=== PATIENT | female | born 1960 | race Caucasian/White ===

== ENCOUNTER 2019-04-18 10:55 | Inpatient (IN) | payer OTHER, SELFPAY ==
[2019-04-18] VITALS (27 sets, daily range): BP systolic 106–190; BP diastolic 57–98; PULSE 55–94; RESP 12–27; TEMP 36.9; O2SAT 91–100; BMI 26.9; BMI 25.7
--- NOTE | 2019-04-18 11:02 | XR_ITS ---
WS: [id number] PORTABLE CHEST HISTORY: cough/congestion COMPARISON: None available. Mild pulmonary hyperexpansion. No nodule or mass. No pleural effusion or pneumothorax. Cardiac size: Normal. Mediastinum/Aorta: Mild atherosclerosis aorta. No osseous abnormality seen. XR/XR chest 1V portable [id number] IMPRESSION: No acute cardiopulmonary disease.
--- NOTE | 2019-04-18 11:02 | ECG_ITS ---
Measurements Intervals [place] Rate: 87 P: 43 AL: 131 QRS: 77 QRSD: 91 T: 70 QT: 361 QTc: 435 SINUS RHYTHM No previous ECG available for comparison Electronically Signed On 04-18-2019 22:02:46 [employer] DIRECTOR by Andreia Song M.D. [email or web address]
--- NOTE | 2019-04-18 11:11 | ED_ITS ---
Entered by Bruna Edwards, acting as scribe for Basil Torres MD, [facility] Apr 18, 2019 10:55 HPI - Chest Pain General: Chief Complaint: Chest Pain Stated Complaint: cp Time Seen by Provider: 04/18/19 11:11 Source: patient Mode of arrival: ambulatory Limitations: no limitations History of Present Illness: HPI narrative: 59 yo Female presents to ED with chest pain. Pt states that her pains started last night. 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 Pt states that her left arm is numb. Pt states that her brother of a heart attack at age 51 and her father has a cardiac history. Pt states that she has some renal failure. Pt states that she is in a manic state because of Prednisone she is taking for her renal injury. Pt states that she hasn't been able to sleep well in some time. The patient has IgA nephropathy with vasculitis and has been on high-dose steroids, 60 mg for the last 20 days also. She is scheduled to have 40 days of the medication. The patient has not slept in several days, has been hallucinating and talking to her brother who has been for about 7 years. She is also delusional and also feels she is manic. She has a history of bipolar disorder and believes she is manic because she is not sleeping, she is full of energy, she is writing several songs, prescription, thinks she is going to win an David award and thinks God is talking to her MD complaint: chest pain Onset (ago): day(s) (last night) Timing of current episode: episodic and still present Prior episodes: No Onset: during rest and awoke with symptoms Pain location: left chest Pain radiation: left arm Pain scale (0-10): 9 Relieving factors: nothing Exacerbating factors: nothing Associated symptoms: Reports dyspnea and other (dizziness); Deny abdominal pain, fever(s), nausea, palpitations or vomiting Treatment prior to arrival: none Review of Systems General: Reports: 10 or more systems reviewed and unremarkable except in HPI and below Const: Denies: fever or chills Eyes: Denies: change in vision, blurry vision or blind spots ENMT: Denies: throat pain, enlarged tonsils, painful swallowing or hoarseness Card: Reports: chest pain and swelling of feet/ankles; Denies: palpitations or irregular heart rhythm Resp: Reports: shortness of breath; Denies: productive cough or non-productive cough GI: Denies: abdominal pain, nausea or vomiting : Denies: flank pain, difficulty urinating, painful urination or urinary frequency Musc: Denies: neck pain, back pain, extremity pain or extremity swelling Skin/Breast: Denies: rash, itching or redness Neuro: Denies: headache, numbness in extremities or weakness in extremities Psych: Reports: anxiety, sleeping less, difficulty concentrating, visual hallucinations and auditory hallucinations; Denies: suicidal ideation Endo: Denies: excessive urination, excessive thirst or tired all the time PFSH ED PFSH: Statuses (acute, chronic, etc) shown below reflect problem list status as previously entered and may not be historically accurate Social History Smoking and tobacco status: never smoked Physical Exam Const: COMMON NORMALS: no apparent distress, average body habitus, oriented x3, no limitations, healthy appearing, alert and well nourished HENMT: COMMON NORMALS: normocephalic, head/scalp atraumatic, hearing grossly normal bilaterally, external ears normal, EAC's normal, TM's normal bilaterally, external nose normal, nasal mucous membranes and turbinates normal, moist oral mucous membranes, oropharynx normal, dentition normal and gingiva normal HEAD & SCALP: normocephalic and atraumatic NOSE: external nose normal and nasal mucous membranes and turbinates normal EXTERNAL EAR: Yes external ears normal EXTERNAL AUDITORY CANAL: EAC's normal TYMPANIC MEMBRANE: TM's normal bilaterally Eye: COMMON NORMALS: PERRL, EOMs intact bilaterally, conjunctivae normal, no scleral icterus, no papilledema, normal visual jameson by confrontation and fundi normal bilaterally CONJUNCTIVA: Yes conjunctivae normal PUPIL: Yes PERRL DIRECT OPHTHALMOSCOPY: Yes no papilledema and Yes fundi normal bilaterally Neck/C-Spine: COMMON NORMALS: full ROM, supple, no meningeal signs, no JVD and no carotid bruits Chest: COMMONS NORMALS: inspection of chest normal and palpation of chest normal Resp: COMMON NORMALS: normal respiratory effort, no retractions, no use of accessory muscles, clear to auscultation bilaterally and percussion normal AUSCULTATION: clear to auscultation bilaterally PERCUSSION: percussion normal Cardio: COMMON NORMALS: no JVD, regular rate, regular rhythm, S1 normal heart sound, S2 normal heart sound, no gallops, no clicks, no murmurs, no rub and peripheral pulses 2+ throughout RATE: regular rate RHYTHM: regular rhythm HEART SOUNDS: S1 normal and S2 normal PERIPHERAL PULSES: pulses 2+ throughout GI: COMMON NORMALS: normal to inspection, nondistended, normoactive bowel sounds, soft to palpation, non-tender, no hepatosplenomegaly, no masses and no bruits PALPATION: Yes soft and Yes no hepatosplenomegaly : COMMON NORMALS: Yes no CVA tenderness BLADDER/KIDNEY EXAM: Yes no CVA tenderness Back/Pelvis: COMMON NORMALS: no CVA tenderness Extremity: COMMON NORMALS: normal to inspection, full ROM, normal capillary refill, no joint enlargement, no clubbing, cyanosis or edema, no calf tenderness and no pedal edema Neuro: COMMON NORMALS: oriented x3 SENSORIUM/ORIENTATION: Yes alert MENINGEAL SIGNS: Yes no meningeal signs Psych: APPEARANCE: Yes grossly normal ATTITUDE: Yes agitated ACTIVITY/MOTOR BEHAVIOR: Yes psychomotor agitation and Yes hyperactive SPEECH: Yes excessive and Yes rapid MOOD & AFFECT: Yes anxious THOUGHT PROCESS: disorganized Skin: COMMON NORMALS: no rashes or lesions noted, no wounds, skin turgor normal, no jaundice, no petechiae and no mottling GENERAL SKIN EXAM: no rashes or lesions noted and turgor normal Course ED course: Discussed her lab findings with her spouse. No acute findings. Patient is sleeping. Discussed options for management including admission versus outpatient care. 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 Her desires to take her home and he said he will watch her. We will let her sleep as she is currently sleeping and has not slept in several days and when she wakes up she will be discharged home. He voiced understanding and is in agreement with the plan Consultations: Consultation #1: Dr. Hdez, her activities manager. Patient should be admitted and steroids tapered. Time: 14:20 Vital Signs: Vital signs: Vital Signs Temperature 98.4 F 04/18/19 10:59 Pulse Rate 73 04/18/19 14:06 Respiratory Rate 15 04/18/19 14:06 Blood Pressure 135/85 04/18/19 14:06 Pulse Oximetry 100 04/18/19 11:15 MDM - Chest Pain MDM Narrative: Medical decision making narrative: Patient with clinical features consistent with steroid-induced psychosis. Patient is delirious, hallucinating, delusional. Labs are unremarkable. Discussed with her activities manager, Dr. Hdez, who advised inpatient admission to taper her steroids and he will change her medications to something else when she is discharged. She will be admitted to the ICU to taper her steroids. Lab Data: Labs: Lab Results 04/18/19 04/18/19 04/18/19 Range/Units 11:10 11:10 11:10 WBC 11.5 H (4.0-10.0) 10^3/ uL RBC 4.36 (4.1-5.3) 10^6/u L Hgb 13.8 (11.5-15.3) g/dL Hct 39.7 (37.0-47.0) % MCV 91.1 (81-99) fL MCH 31.7 (28.0-34.0) pg MCHC 34.8 (30.0-36.0) g/dL RDW 13.9 (12.1-15.1) % Plt Count 299 (130-400) 10^3/c mm MPV 10.2 (7.4-10.4) fL Neut % (Auto) 87.9 % Lymph % (Auto) 6.8 % Sheridan % (Auto) 4.9 % Eos % (Auto) 0.0 % Baso % (Auto) 0.1 % Neut # (Auto) 10.1 H (1.8-7.7) 10^3/u L Lymph # (Auto) 0.8 (0.8-4.8) 10^3/u L Sheridan # (Auto) 0.6 (0.2-0.9) 10^3/u L Eos # (Auto) 0.0 (0.0-0.8) 10^3/u L Baso # (Auto) 0.0 (0.0-0.1) 10^3/u L Nucleated RBC % (a uto) 0 % Nucleated RBCs # 0.0 /100WBC D-Dimer (0-0.59) ug/mIFE U Sodium 134 L (136-145) mmol/L Potassium 4.2 (3.5-5.1) mmol/L Chloride 96 L (98-107) mmol/L Carbon Dioxide 24 (22-29) mmol/L Anion Gap 18.2 (5-19) BUN 19 (6-20) mg/dL Creatinine 0.9 (0.5-0.9) mg/dL GFR Calculation 64.3 L (90-130) mL/min Glucose 133 H (74-109) mg/dL Calcium 9.8 (8.6-10.0) mg/Dl Total Bilirubin 0.4 (0.15-1.2) mg/dL AST 31 (0-32) U/L ALT 36 H (0-33) U/L Alkaline Phosphata se 59 (35-105) IU/L Troponin T Baselin e 21 H (0-10) ng/mL Troponin T 120 Min te-moak (0-10) ng/mL Delta Troponin T (0-10) ABS# Total Protein 5.7 L (6.6-8.7) g/dL Albumin 3.9 (3.5-5.2) g/dL Globulin 1.8 (1.3-4.6) g/dL Urine Opiates Scre en (Negative) ng/mL Ur Barbiturates Sc reen (Negative) ng/mL Ur Phencyclidine S crn (Negative) ng/mL Ur Amphetamines Sc reen (Negative) ng/mL U Benzodiazepines Scrn (Negative) ng/mL Urine Cocaine Scre en (Negative) ng/mL U Marijuana (THC) Screen (Negative) ng/mL 04/18/19 04/18/19 04/18/19 Range/Units 11:10 13:00 14:38 WBC (4.0-10.0) 10^3/ uL RBC (4.1-5.3) 10^6/u L Hgb (11.5-15.3) g/dL Hct (37.0-47.0) % MCV (81-99) fL MCH (28.0-34.0) pg MCHC (30.0-36.0) g/dL RDW (12.1-15.1) % Plt Count (130-400) 10^3/c mm MPV (7.4-10.4) fL Neut % (Auto) % Lymph % (Auto) % Sheridan % (Auto) % Eos % (Auto) % Baso % (Auto) % Neut # (Auto) (1.8-7.7) 10^3/u L Lymph # (Auto) (0.8-4.8) 10^3/u L Sheridan # (Auto) (0.2-0.9) 10^3/u L Eos # (Auto) (0.0-0.8) 10^3/u L Baso # (Auto) (0.0-0.1) 10^3/u L Nucleated RBC % (a uto) % Nucleated RBCs # /100WBC D-Dimer 0.46 (0-0.59) ug/mIFE U Sodium (136-145) mmol/L Potassium (3.5-5.1) mmol/L Chloride (98-107) mmol/L Carbon Dioxide (22-29) mmol/L Anion Gap (5-19) BUN (6-20) mg/dL Creatinine (0.5-0.9) mg/dL GFR Calculation (90-130) mL/min Glucose (74-109) mg/dL Calcium (8.6-10.0) mg/Dl Total Bilirubin (0.15-1.2) mg/dL AST (0-32) U/L ALT (0-33) U/L Alkaline Phosphata se (35-105) IU/L Troponin T Baselin e (0-10) ng/mL Troponin T 120 Min te-moak 16.04 H (0-10) ng/mL Delta Troponin T -4.96 L (0-10) ABS# Total Protein (6.6-8.7) g/dL Albumin (3.5-5.2) g/dL Globulin (1.3-4.6) g/dL Urine Opiates Scre en Negative (Negative) ng/mL Ur Barbiturates Sc reen Negative (Negative) ng/mL Ur Phencyclidine S crn Negative (Negative) ng/mL Ur Amphetamines Sc reen Negative (Negative) ng/mL U Benzodiazepines Scrn Negative (Negative) ng/mL Urine Cocaine Scre en Negative (Negative) ng/mL U Marijuana (THC) Screen Negative (Negative) ng/mL Imaging Data^: CXR: Radiologist's impression: [address] [address] XRay Report Signed Patient: Dar Jasso #: [id number] : 1Acct#:[id number] Age/Sex: 59 / FADM Date: 04/18/19 Loc: ERRoom/Bed: Attending Dr: Ordering Provider/Ordering MD: Sofia Delarosa Date of Service: 04/18/19 Procedure(s): XR chest 1V portable [id number] Accession Number(s): [id number] Report Number: [id number] WS: [id number] PORTABLE CHEST HISTORY: cough/congestion COMPARISON: None available. Mild pulmonary hyperexpansion. No nodule or mass. No pleural effusion or pneumothorax. Cardiac size: Normal. Mediastinum/Aorta: Mild atherosclerosis aorta. No osseous abnormality seen. XR/XR chest 1V portable [id number] IMPRESSION: No acute cardiopulmonary disease. Dictated By:Jaquelin Dey DO Signed By:Jaquelin Dey DOSigned Date/Time:04/18/19 1209 DD/ 1208 Discharge Plan Discharge Patient Disposition: Admitted As Inpatient Clinical Impression: Steroid-induced psychosis, with delusions, Steroid-induced psychosis, with hallucinations, Delirium Condition: Stable Coding Level of Care Code ED Case Managers for Chg Fwd Exam Problem Focused The documentation recorded by the Jerry delaney Carmen, accurately reflects the service I personally performed and the decisions made by Melissa baird Adegoke I, MD, [facility] Apr 18, 2019 10:55
[2019-04-18 11:18] LABS: Basophils % 0.1 %; Hematocrit 39.7 % (37.0-47.0); Hemoglobin 13.8 g/dL (11.5-15.3); Lymphocytes # 0.8 10^3/uL (0.8-4.8); Lymphocytes % 6.8 %; Mean Corpuscular HGB Conc 34.8 g/dL (30.0-36.0); Mean Corpuscular Hemoglobin 31.7 pg (28.0-34.0); Mean Corpuscular Volume 91.1 fL (81-99); Mean Platelet Volume 10.2 fL (7.4-10.4); Monocytes # 0.6 10^3/uL (0.2-0.9); Monocytes % 4.9 %; Neutrophils # 10.1 10^3/uL (1.8-7.7); Neutrophils % 87.9 %; Nucleated Red Blood Cells % 0 %; Platelet Count 299 10^3/cmm (130-400); Red Blood Count 4.36 10^6/uL (4.1-5.3); Red Cell Distribution Width 13.9 % (12.1-15.1); White Blood Count 11.5 10^3/uL (4.0-10.0)
--- NOTE | 2019-04-18 11:19 | PC.NURSE ---
portable xray at bedside
[2019-04-18 11:33] LABS: Alanine Aminotransferase 36 U/L (0-33); Albumin Level 3.9 g/dL (3.5-5.2); Alkaline Phosphatase 59 IU/L (35-105); Anion Gap 18.2 (5-19); Aspartate Amino Transferase 31 U/L (0-32); Blood Urea Nitrogen 19 mg/dL (6-20); Calcium 9.8 mg/Dl (8.6-10.0); Carbon Dioxide 24 mmol/L (22-29); Chloride 96 mmol/L (98-107); Globulin 1.8 g/dL (1.3-4.6); Glomerular Filtration Rate 64.3 mL/min (90-130); Glucose 133 mg/dL (74-109); Potassium 4.2 mmol/L (3.5-5.1); Sodium 134 mmol/L (136-145); Total Bilirubin 0.4 mg/dL (0.15-1.2); Total Protein 5.7 g/dL (6.6-8.7)
[2019-04-18 11:35] LABS: Troponin(5th) Baseline 21 ng/mL (0-10)
[2019-04-18 11:52] LABS: D Dimer 0.46 ug/mIFEU (0-0.59)
[2019-04-18] MEDS: ziprasidone 20 mg/mL SDV IM (11:59)
[2019-04-18] MEDS: LORazepam 2 mg/mL INJ 1 mL (12:00)
--- NOTE | 2019-04-18 12:01 | PC.NURSE ---
when nurse in room to give medication pt was having a manic episode where she was talking loudly to herself. pt began to yell while counting loudly for another person who was not in the room. ed provider notified. ed provider at bedside. orders received. medication administered.
--- NOTE | 2019-04-18 12:26 | PC.NURSE ---
pt is resting now.
--- NOTE | 2019-04-18 13:02 | ECG_ITS ---
Measurements Intervals [place] Rate: 71 P: 68 NE: 160 QRS: 80 QRSD: 79 T: 76 QT: 400 QTc: [address] DEPRESSION [0.025+ mV ST DEPRESSION] No previous ECG available for comparison Electronically Signed On 04-18-2019 22:08:31 HOSPICE OFFICE COORDINATOR by Andreia Song M.D. [id number]
[2019-04-18 13:28] LABS: Troponin 5 2HR 16.04 ng/mL (0-10)
[2019-04-18 13:29] LABS: Troponin 5 2HR Delta -4.96 ABS# (0-10)
[2019-04-18 15:17] LABS: Amphetamines Screen Urine Negative (Negative); Barbiturates Screen Urine Negative (Negative); Benzodiazepines Screen Urine Negative (Negative); Cocaine Screen Urine Negative (Negative); Opiate Screen Urine Negative (Negative); PCP Screen Urine Negative (Negative); THC Screen Urine Negative (Negative)
--- NOTE | 2019-04-18 16:06 | PC.NURSE ---
hospitalist (Heriberto) in room to assess pt from ER
--- NOTE | 2019-04-18 17:02 | ECG_ITS ---
Measurements Intervals [place] Rate: 56 P: 76 PA: 157 QRS: 75 QRSD: 89 T: 79 QT: 437 QTc: 424 SINUS BRADYCARDIA No previous ECG available for comparison Electronically Signed On 04-18-2019 22:09:39 SENIOR SCIENCE CONSULTANT by Andreia Song M.D. [id number]
--- NOTE | 2019-04-18 17:27 | P.HP_ITS ---
Providers/Chief Complaint Primary Care Provider: Chapo Velasquez MD Chief Complaint: Delirum, steroid induced psychosis History of Present Illness Dar Jasso is a 59 year old female with IgA nephropathy, vasculitis, currently on high-dose prednisone, 60 mg daily being managed by her associate professor physician, as they were unable to set up Rituxan per her , she is reportedly 21 days into her 40-day course. She drove herself to emergency department today due to symptoms of chest discomfort which started earlier overnight while she was laying in bed, without any particular trigger, no exacerbating or relieving factors. This is since resolved. In ER she is seen with normal chest x-ray, sinus bradycardia on EKG with some nonspecific changes, with minimal troponin elevation, without positive delta. In ER she was noted to be anxious, reportedly has not been sleeping for several days, hallucinating, and ER talking to her brother who is been for years, reportedly also hearing aliens communicating with her. Per discussion with her he is noted some changes this when she started prednisone, with some irritability, macias bsequently with overconfidence, lack of sleep, and increased activity including at night, stating she had rearranged the living room 3 times. In ER she was given Geodon, Ativan due to hallucinations, delusions, restlessness. She had settled down. Admission was requested for steroid-induced psychosis. During my visit she and her also report that she has had shingles which started 10 days into her steroid treatment. She has acyclovir listed on her medication list, 400 mg daily dose, and reportedly has been taking it up until several days ago when she ran out. At this time she is more awake after medications, and currently alert, able to provide history, is still saying that aliens were talking to her and she has everything on record, however, otherwise is answering appropriately, following commands. At this time she denies headache, photosensitivity, neck pain, nausea, vomiting, diarrhea, dysuria, stating that shingles was localized to her left buttock, up till recently with blisters, although is not sure whether blisters were still present, reaching down to check with her hand. Review of Systems Const: Reports: change in sleep pattern (Per discussion with she has not been sleeping) and other ( Full of energy , elated mood, with more recently anxiety/panic attacks); Denies: fever, chills, body aches or malaise Eyes: Denies: change in vision or eye redness ENMT: Denies: throat pain, oral sores/lesions or ear pain Card: Denies: chest pain, edema, pre-syncope or shortness of breath on exertion Resp: Reports: non-productive cough (She did not provide a duration); Denies: shortness of breath, productive cough, change in phlegm color or coughing up blood GI: Denies: abdominal pain, nausea, vomiting, diarrhea, constipation, blood in stool or black tarry stool : Denies: flank pain, urinary frequency or blood in urine Musc: Denies: back pain, joint swelling or redness Skin/Breast: Reports: rash (Shingles on the left buttock); Denies: sores or new lesion Neuro: Reports: confusion; Denies: headache, numbness in extremities, weakness in extremities, dizziness or seizure-like activity Endo: Denies: excessive urination or excessive thirst Brady/Lymph: Denies: easy bleeding or purpura All/Imm: Denies: hives, throat swelling or tongue swelling Medications/Allergies Home Medications Medication Instructions Recorded Confirmed Last Taken Type acyclovir 400 mg PO DAILY 04/18/19 04/18/19 04/17/19 History duloxetine 60 mg PO DAILY 04/18/19 04/18/19 04/17/19 History levothyroxine 112 mcg PO DAILY 04/18/19 04/18/19 04/18/19 History lisinopril 10 mg PO DAILY 04/18/19 04/18/19 04/17/19 History nifedipine 60 mg PO DAILY 04/18/19 04/18/19 04/17/19 History pantoprazole 40 mg PO DAILY 04/18/19 04/18/19 04/17/19 History prednisone 10 mg PO DAILY 04/18/19 04/18/19 04/18/19 History spironolactone 12.5 mg PO DAILY 04/18/19 04/18/19 04/17/19 History Allergies Allergy/AdvReac Type Severity Reaction Status Date / Time Penicillins Allergy ALGY-Swell Verified 04/18/19 10:59 Lip/Tongue/Throat red dye Allergy ALGY-Swell Verified 04/18/19 10:59 Lip/Tongue/Throat PFSH Acute PFSH: Statuses (acute, chronic, etc) shown below reflect problem list status as previously entered and may not be historically accurate Medical History (Updated 04/18/19 @ 18:01 by Jatin Louis MD) IgA nephropathy (Acute) Shingles (Acute) Vasculitis (Acute) Surgical History H/O breast augmentation (Acute) H/O eye surgery (Acute) History of appendectomy (Acute) History of thyroidectomy (Acute) Family History Father ESRD (end stage renal disease) Urinary bladder cancer Social History Smoking and tobacco status: never smoked Alcohol intake: current Alcohol intake frequency: 3 or more drinks per day Alcohol type: wine Substance/Drug Use: never Lives independently: Yes Household members: spouse Marital status: Vitals/I&O/Wt Last Vital Signs Temp 98.4 F 04/18/19 10:59 Pulse 64 04/18/19 16:28 Resp 12 04/18/19 16:28 BP 148/75 04/18/19 16:28 Pulse Ox 91 04/18/19 16:28 Weight last 48 hrs Weight 75.75 kg Physical Exam Const: COMMON NORMALS: no apparent distress, oriented x3 and well nourished (Currently she is more awake, answering appropriately, joking around. and mother in the room.) GENERAL APPEARANCE: cooperative; not anxious HENMT: COMMON NORMALS: oropharynx normal Neck/C-Spine: COMMON NORMALS: no JVD Resp: COMMON NORMALS: normal respiratory effort and clear to auscultation bilaterally AUSCULTATION: clear to auscultation bilaterally Cardio: COMMON NORMALS: no JVD, regular rhythm, S1 normal heart sound, S2 normal heart sound and no murmurs RHYTHM: regular rhythm HEART SOUNDS: S1 normal and S2 normal GI: COMMON NORMALS: normal to inspection, nondistended, normoactive bowel sounds, soft to palpation and non-tender PALPATION: Yes soft Extremity: COMMON NORMALS: no joint enlargement and no pedal edema Neuro: COMMON NORMALS: oriented x3 and moves all extremities Skin: COMMON NORMALS: no rashes or lesions noted RASHES: rashes noted (Left buttock 2 lesions with shallow ulcerations, no blisters, surrounding erythema.) Data : 04/18/19 11:10 04/18/19 11:10 A&P Assessment and plan (1) Delirium: Acute encephalopathy with delirium secondary to suspected to steroid- induced psychosis, with hallucinations, anxiety, recently with elated mood, insomnia. In ER received Lopressidone, Ativan. With improvement in behavioral symptoms. Now more awake, cooperative, still stating that she heard aliens talking and had recorded everything on camera. She is currently on 60 mg prednisone 21 days into her 14 days course. states symptoms started shortly after initiating medication with irritability initially, subsequently was full of energy , lately with anxiety/panic attacks, and now noted with paranoid ideation, hallucinations. She is afebrile, without leukocytosis. UA ordered. With some chest pain prior to presentation. Currently resolved. Chest x-ray unremarkable. At home also takes duloxetine, although says usually takes her medications pretty religiously. Denies any indication of possible overdose. does report that she drinks alcohol on a daily basis, usually wine, at least 2 glasses, on Wednesday reportedly drank possibly a whole bottle, versus 3 glasses, he was not sure. Reports yesterday did not drink any. Will start on CIWA protocol for possible occult withdrawal. Check TSH. She also has shingles which started 10 days into her regimen, and she has taken acyclovir given to her by her PCP, although at a dose of 400 mg/day and says she ran out of medication several days ago. Reports blistered lesions on the left buttock up until recently. Given immunosuppression, currently suspicion for VZV encephalitis is low, however, cannot entirely be excluded. We will continue her on acyclovir, for now with airborne and contact isolation, while tapering down prednisone, monitoring for clinical improvement. In case of worsening may need additional assessment by LP. Status: Acute Code(s): R41.0 - Disorientation, unspecified (2) Steroid-induced psychosis, with hallucinations: We will taper down steroids as recommended by her associate professor physician Dr. Hdez per discussion with ER physician. Required chemical sedation in ER. For now we will monitor in ICU. Status: Acute Code(s): F19.951 - Other psychoactive substance use, unspecified with psychoactive substance-induced psychotic disorder with hallucinations (3) IgA nephropathy: On 60 mg prednisone, 21 days into her 40-day course. Taper off steroids per recommendation of her associate professor physician, Dr. Hdez. Once she is improved, he will see her back in clinic for considerations of alternative therapy. Status: Acute Code(s): N02.8 - Recurrent and persistent hematuria with other morphologic changes (4) Shingles: Switch acyclovir to 800 mg 5 times a day. For now contact and airborne isolation. Status: Acute Code(s): B02.9 - Zoster without complications (5) Chest pain: Resolved. Dull ache, across her chest, since overnight. With minimal elevation of troponin, without significant delta. Some nonspecific changes on EKG, with sinus bradycardia, minimal ST depression. Denies past history of coronary disease. There is some history in the family apparently. For now we will start her on aspirin, beta-whit, check lipid panel, A1c, add PPI with concomitant prednisone. Would benefit from assessment by stress testing once she is stable in terms of delirium. Status: Acute Code(s): R07.9 - Chest pain, unspecified Attestations Medical Necessity Statement*: Admission of over 2 midnights is going to be needed for assessment of management of acute encephalopathy, suspected steroid- induced delirium, with possible alcohol withdrawal, with shingles while immunocompromised, needing additional monitoring and treatment. Coding Level of Care Code Acute Marine Service Operator for [facility] Diagnoses Delirium R41.0 Steroid-induced psychosis, with hallucinations F19.951 IgA nephropathy N02.8 Shingles B02.9 Chest pain R07.9
[2019-04-18 17:34] LABS: Troponin 5 6HR 24.63 ng/L (0-10); Troponin 5 6HR Delta 3.63 ng/L (0-12)
[2019-04-18] MEDS: heparin 5,000 unit/mL INJ 1 mL 5000 UNIT SUBCUT (19:38)
[2019-04-18] MEDS: acyclovir 800 mg Tablet PO ×2 (19:58→22:42)
[2019-04-18 20:29] LABS: Chol HDL Ratio 3.09 mg/dL (0.0-4.40); Cholesterol 331 mg/dL (0-200); HDL Cholesterol 107 mg/dL (60-100); LDL Cholesterol Calculated 169 mg/dL (50-129); LDL HDL Ratio 1.58 RATIO (0.00-3.22); Thyroid Stimulating Hormone 5.62 uIU/mL (0.27-4.20); Triglycerides 276 mg/dL (0-150)
[2019-04-18 20:37] LABS: Estmated Average Glucose 131; Hemoglobin A1C 6.2 % (4.0-6.0)
[2019-04-19] VITALS (24 sets, daily range): BP systolic 106–171; BP diastolic 57–104; PULSE 58–94; RESP 15–28; TEMP 37.2; O2SAT 93–97
--- NOTE | 2019-04-19 | CT_ITS ---
WS: [id number] CT HEAD NONCONTRAST HISTORY: NEW PSYCHOSIS TECHNIQUE: Contiguous axial imaging performed through the brain in 2.5 mm imaging. Bone and soft tiss ue windows. Sagittal and coronal reformats reviewed. All CT scans at [facility] use at le ast one of these dose optimization techniques: automated exposure control; mA and/or kV adjustment pe r patient size (includes targeted exams where dose is matched to clinical indication); or iterative r econstruction. DLP: 801.56 mGy-cm. COMPARISON: None available. No acute intracranial hemorrhage, midline shift or mass effect. No significant atrophy. Decreased attenuation around the occipital horns of the lateral ventricles an d the parieto-occipital lobes. May be chronic ischemic disease. Ventricles: Normal size with no hydrocephalus. Paranasal sinuses: As visualized are clear. Mastoid air cells: Well pneumatized. Calvarium and scalp: Skull is intact with no soft tissue edema or swelling. CT/CT head wo con* [id number] IMPRESSION: 1. No acute intracranial hemorrhage or edema. 2. Mild decreased attenuation in the parieto-occipital regions bilaterally. Ma y be related to chronic ischemic disease. Consider posterior reversible encepha lopathy also as a possible etiology.
[2019-04-19] MEDS: hyDRALAzine 20 mg/mL INJ 1 mL 10 MG IVP (02:47)
--- NOTE | 2019-04-19 03:57 | PC.NURSE ---
Patient voices unreasonable requests. States she feels as though people are staring at her and not smiling. She appears to have manic episodes. Patient is no harm to self. Will continue to monitor.
[2019-04-19] MEDS: acyclovir 800 mg Tablet PO ×5 (05:34→21:13)
[2019-04-19 05:42] LABS: Basophils % 0.1 %; Eosinophils # 0.1 10^3/uL (0.0-0.8); Eosinophils % 0.4 %; Hematocrit 36.8 % (37.0-47.0); Hemoglobin 12.5 g/dL (11.5-15.3); Lymphocytes # 2.9 10^3/uL (0.8-4.8); Lymphocytes % 25.6 %; Mean Corpuscular Hemoglobin 31.7 pg (28.0-34.0); Mean Corpuscular Volume 93.4 fL (81-99); Mean Platelet Volume 10.8 fL (7.4-10.4); Monocytes # 0.7 10^3/uL (0.2-0.9); Monocytes % 6.4 %; Neutrophils # 7.6 10^3/uL (1.8-7.7); Neutrophils % 67.1 %; Nucleated Red Blood Cells % 0 %; Platelet Count 276 10^3/cmm (130-400); Red Blood Count 3.94 10^6/uL (4.1-5.3); Red Cell Distribution Width 14.2 % (12.1-15.1); White Blood Count 11.3 10^3/uL (4.0-10.0)
[2019-04-19] MEDS: heparin 5,000 unit/mL INJ 1 mL 5000 UNIT SUBCUT ×2 (07:54→19:56)
[2019-04-19] MEDS: lanolin oint 7 gm 1 APPLIC TOPICAL (07:56)
[2019-04-19] MEDS: duloxetine 60 mg Capsule PO (09:48)
[2019-04-19] MEDS: thiamine 100 mg Tablet PO (09:49)
[2019-04-19] MEDS: predniSONE 20 mg Tablet 40 MG PO (09:49)
[2019-04-19] MEDS: multivitamin therapeutic Tablet 1 TAB PO (09:49)
[2019-04-19] MEDS: NIFEdipine ER (24 hr) 30 mg Tablet 60 MG PO (09:50)
[2019-04-19] MEDS: spironolactone 25 mg Tablet 12.5 MG PO (09:50)
[2019-04-19] MEDS: folic acid 1 mg Tablet PO (09:51)
[2019-04-19] MEDS: metoprolol tartrate 25 mg Tablet 12.5 MG PO ×2 (09:51→18:28)
[2019-04-19] MEDS: pantoprazole DR 40 mg Tablet PO (09:51)
[2019-04-19] MEDS: levothyroxine 50 mcg Tablet 100 MCG PO (09:51)
[2019-04-19 10:46] LABS: Alanine Aminotransferase 41 U/L (0-33); Albumin Level 3.5 g/dL (3.5-5.2); Alkaline Phosphatase 57 IU/L (35-105); Anion Gap 13.4 (5-19); Aspartate Amino Transferase 36 U/L (0-32); Blood Urea Nitrogen 17 mg/dL (6-20); Carbon Dioxide 27 mmol/L (22-29); Chloride 95 mmol/L (98-107); Glomerular Filtration Rate 64.3 mL/min (90-130); Glucose 122 mg/dL (74-109); Potassium 3.4 mmol/L (3.5-5.1); Sodium 132 mmol/L (136-145); Total Bilirubin 0.2 mg/dL (0.15-1.2); Total Protein 5.5 g/dL (6.6-8.7)
[2019-04-19 14:07] LABS: T3 Free 1.8 PG/ML (2.0-4.4)
[2019-04-19 17:07] LABS: Add Urine Microscopic? YES; Bilirubin Urine Neg (NEGATIVE); Blood Urine 2+ (Negative); Glucose Urine UA Norm (Normal); Ketones Urine Negative (Negative); Leukocyte Esterase Urine Negative (Negative); Nitrate Urine Negative (Negative); Protein Urine 1+ (Negative); Sulfosalicylic Acid Urine Trace; Urine Appearance Clear (CLEAR); Urine Color Yellow (Yellow); Urobilinogen Urine Norm (Negative); pH Urine 8 (5-7)
[2019-04-19 17:08] LABS: Add Urine Culture? Yes; Bacteria Urine 1+; Mucus Urine TRACE; RBC Urine 15-25 /hpf (0-2); Squamous Epithelial Cell Urine 0-4 (0-5); WBC Urine 0-4 /hpf (0-5)
--- NOTE | 2019-04-19 18:30 | PM.ACPR ---
Procedure/Consent Time out: Time Out Performed: Yes Consent: Consent for Procedure: Consent obtained from patient Procedure Narrative: Name of the procedure: Lumbar puncture Indication: Suspected encephalitis Medications: 1% lidocaine 5 mL, Versed 2 mg, fentanyl 75 mcg Description: The patient was placed in a sitting position with leaning forward on the table. Using the iliac crests as a landmark, space between L3 and L4 vertebrae were identified. The site was marked. The site was cleaned using sterile technique. Sterile technique was followed throughout the procedure. The skin, subcutaneous tissue and deeper tissue were anesthetized with 1% lidocaine. A lumbar puncture needle was advanced in between the spinous processes of L3 and L4 vertebrae. The needle was advanced until a pop and loss of resistance was felt. CSF was noted to be draining through the spinal needle. The opening pressure was 36 cm of water. CSF was crystal clear. The procedure was nonbloody. A total of 12 cc of CSF was collected. Postdrainage the closing pressure was 5 cm of water. The CSF was sent for studies. Complications: No immediate complication was noted. The plan is to hold off on subcu heparin for 24 hours post procedure. Acute Procedures Epistaxis Control: Time out performed: Yes
[2019-04-19 19:12] LABS: CSF Mononuclear # 0.001 10^3/uL (50-90); Mononuclear WBC CSF % 100 % (50-90); Polynuclear WBC CSF % 0 % (0-10); Red Blood Cell CSF 0 10^3/uL (0-0); White Blood Cell CSF 1 /uL (0-5)
[2019-04-19 19:33] LABS: Appearance CSF CLEAR (CLEAR); Color CSF COLORLESS (COLORLESS); Pathology Referral Yes
[2019-04-19] MEDS: LORazepam 2 mg/mL INJ 1 mL IM (21:14)
--- NOTE | 2019-04-19 22:03 | P.PN_ITS ---
Subjective Subjective: Interval history: seen and examined this afternoon and again this evening. Mental status is improved. Alert, awake, no further hallucinations. reliazes that previous statements regarding aliens and recording events were probably not real. Medications: Reviewed: Yes Vitals/I&O/Wt Last Vital Signs Temp 98.9 F 04/19/19 06:00 Pulse 58 L 04/19/19 21:00 Resp 22 H 04/19/19 21:00 BP 128/94 04/19/19 21:00 Pulse Ox 96 04/19/19 21:00 Weight last 48 hrs Weight 72.575 kg Weight 72.484 kg Weight 75.75 kg Physical Exam Narrative: EXAM NARRATIVE: GEN: Awake, alert and oriented, no acute distress CVS: S1S@ N RS: CTA B/L Abd: Soft, nt/nd , bs+ INTAKE RN: no focal neuro deficits Data : 04/19/19 04:38 04/19/19 04:38 A&P Assessment and plan (1) Delirium: Acute encephalopathy with delirium secondary to suspected to steroid- induced psychosis, with hallucinations, anxiety, recently with elated mood, insomnia. Now significantly improving, realozes mental status not at baseline She also has shingles which started 10 days into her regimen, and she has taken acyclovir given to her by her PCP. She reports today that prior to starting steroids she had been taking suppressive ACV for recurrent HSV once daily for a long time but then had discontinued as she had not had a flare in several years. When she noticed the lesion, she had started the increased dose of ACV 5 times a day and the lesions had crusted over and healed. CT head was obtained today given mental status changes- showed B/L parietooccip ital hypoattenuation which may be related to chronic microvascular changes vs PRES, however based on this possibility of viral encephalopathy cannot be excluded. A lumbar puncture was performed this evening by animal scientist Dr. Davis. continue her on acyclovir, for now with airborne and contact isolation, while tapering down prednisone, monitoring for clinical improvement. Status: Acute Code(s): R41.0 - Disorientation, unspecified (2) Steroid-induced psychosis, with hallucinations: We will taper down steroids as recommended by her professional services specialist Dr. Hdez per discussion with ER physician. Required chemical sedation in ER. For now we will monitor in ICU. Will require PJP ppx as planned to be on high dose steroids for > 1 month. Bactrim not preferred due to listed allergy (rash) and IgA nephrotpathy (potential nephrotoxin). Will start Atovaquone 1500mg qd. Status: Acute Code(s): F19.951 - Other psychoactive substance use, unspecified with psychoactive substance-induced psychotic disorder with hallucinations (3) IgA nephropathy: On 60 mg prednisone, 21 days into her 40-day course. Taper off steroids per recommendation of her professional services specialist, Dr. Hdez. Once she is improved, he will see her back in clinic for considerations of alternative therapy. Status: Acute Code(s): N02.8 - Recurrent and persistent hematuria with other morphologic changes (4) Shingles: Status: Acute Code(s): B02.9 - Zoster without complications (5) Chest pain: Resolved. Dull ache, across her chest, since overnight. With minimal elevation of troponin, without significant delta. Some nonspecific changes on EKG, with sinus bradycardia, minimal ST depression. Denies past history of coronary disease. There is some history in the family apparently. 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
[2019-04-19 23:53] LABS: Glucose CSF 86 mg/dL (40-70); Total Protein CSF 29 mg/dL (15-45)
[2019-04-20] VITALS (11 sets, daily range): BP systolic 110–159; BP diastolic 53–92; PULSE 0–85; RESP 14–25; TEMP 36.9; O2SAT 95–98
[2019-04-20 04:10] LABS: Alanine Aminotransferase 33 U/L (0-33); Albumin Level 3.3 g/dL (3.5-5.2); Alkaline Phosphatase 53 IU/L (35-105); Anion Gap 13.9 (5-19); Aspartate Amino Transferase 19 U/L (0-32); Blood Urea Nitrogen 14 mg/dL (6-20); Calcium 9.2 mg/Dl (8.6-10.0); Carbon Dioxide 27 mmol/L (22-29); Chloride 101 mmol/L (98-107); Glomerular Filtration Rate 85.9 mL/min (90-130); Glucose 90 mg/dL (74-109); Potassium 3.9 mmol/L (3.5-5.1); Sodium 138 mmol/L (136-145); Total Bilirubin 0.2 mg/dL (0.15-1.2); Total Protein 5.3 g/dL (6.6-8.7)
[2019-04-20] MEDS: acyclovir 800 mg Tablet PO ×2 (06:26→12:01)
[2019-04-20] MEDS: heparin 5,000 unit/mL INJ 1 mL 5000 UNIT SUBCUT (06:26)
[2019-04-20 07:37] LABS: T4 Total 5.8 mcg/dL (5.1-11.9)
--- NOTE | 2019-04-20 08:49 | MR_ITS ---
WS: [id number] MRI BRAIN WITHOUT CONTRAST HISTORY: PRES on CT COMPARISON: CT head 02/18/2020 TECHNIQUE: Diffusion imaging, multiplanar T1, T2 and FLAIR imaging obtained. No evidence for acute infarct or hemorrhage. Yoon-white matter differentiation is normal. No signal a bnormality in the parieto-occipital region to suggest posterior reversible encephalopathy. No remote or acute infarcts are volume loss. Ventricles and extra-axial spaces are normal. No inferior displacement of cerebellar tonsils. Minimal ectopia the cerebellar tonsils. The sella tur cica and pituitary gland are unremarkable. Posterior fossa is also unremarkable. Dural venous sinuses and [place] demonstrate no abnormality on this unenhanced studies. Paranasal sinuses: Clear. Mastoid air cells: Normal. Calvarium and scalp: Intact. MR/MR head wo con* [id number] IMPRESSION: 1. Unremarkable noncontrast MRI brain. 2. No ischemic changes or progressive reversible encephalopathy.
[2019-04-20] MEDS: duloxetine 60 mg Capsule PO (09:11)
[2019-04-20] MEDS: metoprolol tartrate 25 mg Tablet 12.5 MG PO (09:12)
[2019-04-20] MEDS: spironolactone 25 mg Tablet 12.5 MG PO (09:12)
[2019-04-20] MEDS: folic acid 1 mg Tablet PO (09:12)
[2019-04-20] MEDS: levothyroxine 100 mcg Tablet PO (09:12)
[2019-04-20] MEDS: multivitamin therapeutic Tablet 1 TAB PO (09:12)
[2019-04-20] MEDS: pantoprazole DR 40 mg Tablet PO (09:13)
[2019-04-20] MEDS: NIFEdipine ER (24 hr) 30 mg Tablet 60 MG PO (09:13)
[2019-04-20] MEDS: thiamine 100 mg Tablet PO (09:13)
[2019-04-20] MEDS: predniSONE 20 mg Tablet 40 MG PO (09:13)
--- NOTE | 2019-04-20 09:42 | PC.CHAP ---
Pastoral Care Encounter/Spiritual Assessment Type of Contact [] Declined calender operator helper visit [] Patient/Family/Request visit [] Outpatient visit [] Follow-up visit [] Physician referral [] Code/Alert [] Routine visit [] Staff referral [] Actively dying [] Patient sleeping [] Family support [] [] Out of room [] Palliative care [] [] Receiving care in room [] Pre-surgical visit [] Trauma [] Long length of stay [] ICU visit [] Other: Relational/Emotional Strength [] Patient feels connected with others/family/visitors/staff [] Distress [] Loneliness/isolation [] Abandonment Spirituality of Patient [] Person of Yelena [] Attends Uatsdin of their Yelena [] Believes in Prayer [] Reads Bible or Samaritan materials [] There are Spiritual issues to be addressed Combat Systems Operator Mine Warfare Interventions [] Prayer [] Active listening [] Non-anxious presence [] Spiritual/emotional support [] Crisis/trauma care [] Spiritual counseling [] Bereavement support [] Provided bereavement packet [] Provided Bible/devotional materials [] Provided toy/stuffed animal, coloring book to patient or family member [] Completed spiritual assessment [] Provided Communion [] Anointing/[place] [] Salvation [] Other: Impact on Illness or Injury [x] Angry [] Fearful [] Anxious [] Often cries [] Exhaustion [] Unable to work [] Unable to attend synagogue [] Unable to walk/stand [] Unable to read [] Unable to drive [] Unable to eat/drink [] Unable to sleep [] Unable to be with family [x] Other: Patient believes in a higher power asked to leave room Patient angry with spouse. Patient feels abandoned by spouse when he leaves to eat. Patient jumps from one subject to another Summary Time spent with patient 20 min
--- NOTE | 2019-04-20 11:48 | PC.NURSE ---
Patient out of room to MRI
--- NOTE | 2019-04-23 18:15 | PM.DCS ---
Discharge Providers Date of Admission: 04/18/19 14:42 Attending Provider at Admission: Jatin Louis Attending Provider at Discharge: Yesy Abbasi MD Primary Care Provider: Chapo Conklin MD Diagnoses at Discharge Discharge Diagnosis (1) Delirium: Status: Acute (2) Steroid-induced psychosis, with hallucinations: Status: Acute (3) IgA nephropathy: Status: Acute (4) Shingles: Status: Acute (5) Chest pain: Status: Resolved Reason for Visit Reason for Visit: Reason For Visit: Delirum, steroid induced psychosis Hospital Course Discharge Summary: ilya Jasso is a 59 year old female with IgA nephropathy, vasculitis, currently on high-dose prednisone, 60 mg daily being managed by her van cdl driver, as they were unable to set up Rituxan per her , she is reportedly 21 days into her 40-day course. She drove herself to emergency department due to symptoms of chest discomfort which started earlier overnight while she was laying in bed, without any particular trigger, no exacerbating or relieving factors. This is since resolved. In ER she is seen with normal chest x-ray, sinus bradycardia on EKG with some nonspecific changes, with minimal troponin elevation, without positive delta. In ER she was noted to be anxious, reportedly has not been sleeping for several days, hallucinating, and ER talking to her brother who is been for years, reportedly also hearing aliens communicating with her. Per discussion with her he is noted some changes this when she started prednisone, with some irritability, subsequently with overconfidence, lack of sleep, and increased activity including at night, stating she had rearranged the living room 3 times. In ER she was given Geodon, Ativan due to hallucinations, delusions, restlessness. She had settled down. Admission was requested for steroid-induced psychosis. she and her also reported that she has had shingles which started 10 days into her steroid treatment. She has acyclovir listed on her medication list, 400 mg daily dose, and reportedly has been taking it up until several days ago when she ran out. She was admitted for further w/up. Due to c/f steroid induced psychosis, dose of prednisone was reduced to 40mg /d. her menatl status quickly returned to baseline and there were no further hallucinations. CT head was obtained which showed B/L parietoocciptal hypoattenuation which was concerning for PRES. MRI was further indicated for the same which did not show this finding the next day. 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 She is being discharged with resolution of hallucinations. Behavior is close to baseline. Per discussion with , patient has always had a flight of ideas and this was not too far from her usual personality. Atovaquone was added for PJP prophylaxis given high dose steroids planned to last >1 month. Bactrim was not chosen due to IgA nephropathy, potential for nephrotoxicity and listed prior sulfa allergy in [place]. 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 MACHINE OPERATOR: no focal neuro deficits Discharge Data Data Completed and Pending: Completed Studies During Hospitalization Category Date Time Status CT head wo con* 7 [id number] Routine Cat Scan 04/19/19 Completed XR chest 1V devaughn ble [id number] Urgent Exams 04/18/19 11:02 Completed MR head wo con* 7 [id number] Routine MRI 04/20/19 08:49 Completed Pending at discharge Category Date Time Status Miscellaneous Rocío t Routine Lab 04/19/19 18:10 Received Vitals: Last Vital Signs Temp 98.4 F 04/20/19 12:00 Pulse 0 L 04/20/19 12:00 Resp 16 04/20/19 12:00 BP 156/90 04/20/19 12:00 Pulse Ox 98 04/20/19 12:00 Discharge Plan Discharge Patient Disposition: Home, Self-Care Condition: Stable Prescriptions: New atovaquone 750 mg/5 mL suspension 1,500 mg PO DAILY Qty: 100 RF: 1 folic acid 1 mg Tablet 1 mg PO DAILY Qty: 0 RF: 0 Vitamin B-1 (mononitrate) 100 mg Tablet 100 mg PO DAILY Qty: 0 RF: 0 Thera 400 mcg Tablet 1 tab PO DAILY Qty: 0 RF: 0 Continued spironolactone 25 mg tablet 12.5 mg PO DAILY RF: 0 nifedipine 60 mg tablet extended release 24hr 60 mg PO DAILY RF: 0 pantoprazole 40 mg tablet,delayed release (DR/EC) 40 mg PO DAILY RF: 0 lisinopril 10 mg tablet 10 mg PO DAILY RF: 0 levothyroxine 112 mcg tablet 112 mcg PO DAILY RF: 0 duloxetine 60 mg capsule,delayed release(DR/EC) 60 mg PO DAILY RF: 0 Changed prednisone 10 mg tablet 40 mg PO DAILY Qty: 0 RF: 0 acyclovir 400 mg tablet 400 mg PO BIDWM Qty: 0 RF: 0 Discharge Orders: Discharge Order (Routine); Ordered 04/20/19 Ordered By: Yesy Abbasi Referrals: Nicola Hdez MD [Referring] - 1 week (you are scheduled for follow up at [facility] next week APRIL 26, 2019 AT 2:45 PM ) Chapo Conklin MD [Primary Care Provider] - 2 weeks (THIS IS SCHEDULED FOLLOW UP AT [facility] WITH DR. CONKLIN FOR APPOINTMENT TIME OF: 2019 AT 3:30 PM ) Discharge Diet: Usual diet Discharge Activity: Resume usual activity Patient Instructions: Thiamine (Vitamin B-1) (By mouth), Folic Acid (By mouth), Multivitamins, Adult Formula (By mouth), Atovaquone (By mouth), Altered Mental Status (GEN), Shingles Discharge Date/Time: 04/20/19 15:00 Discharge Attestations Time Spent in Discharge Care*: greater than 30 min Quality Metrics Clinical Quality Measures During this hospital stay, did patient experience: None Coding Level of Care Code Acute Waiver Analyst for [employer] Fwd Diagnoses Delirium R41.0 Steroid-induced psychosis, with hallucinations F19.951 IgA nephropathy N02.8 Shingles B02.9 Chest pain R07.9
== END 2019-04-20 15:00 | disposition home or self-care (01) | DRG 92 ==
LOC: ER 14:37 → ICU 17:23
PROVIDERS: Physician Assistant; Admitting Provider Internal Medicine; Emergency Provider Family Medicine; Family Provider Family Medicine; PCP Family Medicine; Visit Provider Student in an Organized Health Care Education/Training Program
DX: G92 Toxic encephalopathy (principal); N02.8 Recurrent and persistent hematuria with other morphologic changes; R44.3 Hallucinations, unspecified; T38.0X5A Adverse effect of glucocorticoids and synthetic analogues, initial encounter; F41.9 Anxiety disorder, unspecified; G47.00 Insomnia, unspecified; F41.0 Panic disorder [episodic paroxysmal anxiety]; B02.9 Zoster without complications
CPT/HCPCS: 12345; 36415; 70450; 70551; 71045; 80053; 80061; 80307; 80500; 81001; 81003; 82945; 83036; 84157; 84436; 84443; 84481; 84484; 85025; 85378; 86695; 86696; 87070; 87075; 87086; 87205; 87798; 89050; 93005; 96372; 96375; 99283; J0360; J1644; J2060; J3411; J3486; J7512; J8499

== ENCOUNTER 2019-05-08 15:03 | Outpatient (CLI) | payer OTHER, SELFPAY ==
--- NOTE | 2019-05-08 | XR_ITS ---
WS: [id number] ABDOMEN 2 VIEW(S) HISTORY: CONSTIPATION COMPARISON: None available. Moderate fecal retention, greatest in the RIGHT colon. No obstructive pattern. No suspicious calcifications or masses. No free air or air-fluid level. No bone abnormality. Rounded foreign bodies project over the lumbar spine. These are probably external due to their signif icant change in position between the supine and upright film. XR/XR abdomen min 2V [id number] IMPRESSION: Moderate constipation. No obstruction.
== END 2019-05-08 15:04 | disposition home or self-care (01) ==
LOC: RADOUTREAD 05-09 07:37
PROVIDERS: Family Provider Family Medicine; PCP Family Medicine; Visit Provider Family Medicine
DX: Z76.89 Persons encountering health services in other specified circumstances (principal)

== ENCOUNTER 2019-06-06 10:33 | Outpatient (CLI) | payer OTHER, SELFPAY ==
--- NOTE | 2019-06-06 | US_ITS ---
WS: [id number] ULTRASOUND PELVIS TECHNIQUE: Transvaginal. CLINICAL INFORMATION: OVARIAN CYST LMP: 2 months : No. COMPARISON: None. FINDINGS: Uterus Orientation: Anteverted. Size: 4.4 x 3.4 x 1.9 cm Masses: Fibroid measuring 5 x 5 x 5 mm Cervix: 1.8 cm Endometrium: Normal. Endometrium thickness: 1.9 mm Adnexa: Left ovarian cyst measuring 3.2 x 3.6 x 3.7 cm Ovaries are otherwise unremarkable. Free fluid: None. Other findings: None. US/US transvaginal [id number] IMPRESSION: 1. Fibroid measuring 5 x 5 x 5 mm. 2. Normal endometrium measuring 1.9 mm 3. Left ovarian simple cyst measuring 3.2 x 3.6 x 3.7 CM. Recommend follow-up in 2-3 menstrual cycles 4. Ovaries otherwise normal. 5. No free fluid in the cul-de-sac.
== END 2019-06-06 10:34 | disposition home or self-care (01) ==
LOC: RADOUTREAD 12:19
PROVIDERS: Family Provider Family Medicine; PCP Family Medicine; Visit Provider Family Medicine
DX: Z01.89 Encounter for other specified special examinations (principal)

== ENCOUNTER → 2019-11-23 13:04 | Outpatient (BNVA) | payer OTHER, SELFPAY | PROVIDERS: Family Provider Family Medicine; PCP Family Medicine; Visit Provider Internal Medicine | DX: E89.0 Postprocedural hypothyroidism (principal); R73.03 Prediabetes; E78.5 Hyperlipidemia, unspecified; K90.0 Celiac disease | CPT/HCPCS: 99204 ==

== ENCOUNTER 2019-11-27 13:43 | Outpatient (CLI) | payer OTHER, SELFPAY ==
[2019-11-27 14:16] LABS: Basophils # 0.1 10^3/uL (0.0-0.1); Basophils % 0.6 %; Eosinophils # 0.1 10^3/uL (0.0-0.8); Eosinophils % 1.2 %; Hematocrit 41.9 % (37.0-47.0); Hemoglobin 13.8 g/dL (11.5-15.3); Lymphocytes # 2.2 10^3/uL (0.8-4.8); Lymphocytes % 21.2 %; Mean Corpuscular HGB Conc 32.9 g/dL (30.0-36.0); Mean Corpuscular Hemoglobin 32.9 pg (28.0-34.0); Mean Platelet Volume 10.6 fL (7.4-10.4); Monocytes # 0.8 10^3/uL (0.2-0.9); Monocytes % 8.3 %; Neutrophils # 6.95 10^3/uL (1.8-7.7); Neutrophils % 68.3 %; Nucleated Red Blood Cells % 0 %; Platelet Count 330 10^3/cmm (130-400); Red Blood Count 4.19 10^6/uL (4.1-5.3); Red Cell Distribution Width 13.6 % (12.1-15.1); White Blood Count 10.2 10^3/uL (4.0-10.0)
[2019-11-27 14:30] LABS: Albumin Level 4.6 g/dL (3.5-5.2); Anion Gap 17.4 (5-19); Blood Urea Nitrogen 25 mg/dL (6-20); Calcium 9.2 mg/dL (8.5-10.5); Carbon Dioxide 22 mmol/L (22-29); Chloride 102 mmol/L (98-107); Glomerular Filtration Rate 56.9 mL/min (90-130); Glucose 75 mg/dL (65-115); Phosphorus 3.9 mg/dL (2.5-4.5); Potassium 4.4 mmol/L (3.5-5.1); Sodium 137 mmol/L (136-145)
[2019-11-27 14:38] LABS: Chol HDL Ratio 3.56 mg/dL (0.0-4.40); Cholesterol 306 mg/dL (0-200); HDL Cholesterol 86 mg/dL (60-100); LDL Cholesterol Calculated 162 mg/dL (50-129); LDL HDL Ratio 1.88 RATIO (0.00-3.22); Thyroid Stimulating Hormone 0.63 uIU/mL (0.27-4.20); Triglycerides 289 mg/dL (0-150)
[2019-11-27 14:56] LABS: Estmated Average Glucose 108; Hemoglobin A1C 5.4 % (4.0-6.0)
[2019-11-27 14:59] LABS: Calcium 9.8 mg/dL (8.5-10.5)
[2019-11-27 15:13] LABS: Free T4 Free Thyroxine 1.21 ng/dL (0.82-1.77)
[2019-11-28 03:43] LABS: Urine Creatinine 76 mg/dL (28-217); Urine Protein Random 9 mg/dL
[2019-11-28 03:44] LABS: UPRO/UCREAT Ratio 0.12 mg/mg CR
== END 2019-11-27 13:44 | disposition home or self-care (01) ==
LOC: LAB 13:45
PROVIDERS: Internal Medicine; PCP Family Medicine; Visit Provider Registered Nurse
DX: N18.3 Chronic kidney disease, stage 3 (moderate) (principal); E89.0 Postprocedural hypothyroidism; K90.0 Celiac disease; R73.03 Prediabetes; E78.89 Other lipoprotein metabolism disorders; E78.5 Hyperlipidemia, unspecified
CPT/HCPCS: 36415; 80061; 80069; 82310; 82570; 83036; 83970; 84156; 84439; 84443; 85025

== ENCOUNTER → 2020-02-01 11:05 | Outpatient (BNVA) | payer OTHER, SELFPAY | PROVIDERS: PCP Family Medicine; Visit Provider Internal Medicine | DX: E89.0 Postprocedural hypothyroidism (principal); E78.89 Other lipoprotein metabolism disorders; K90.0 Celiac disease; N02.8 Recurrent and persistent hematuria with other morphologic changes; R73.03 Prediabetes | CPT/HCPCS: 99214 ==

== ENCOUNTER 2020-02-23 15:33 | Outpatient (CLI) | payer OTHER, SELFPAY ==
[2020-02-23 16:52] LABS: Albumin Level 4.6 g/dL (3.5-5.2); Anion Gap 16.3 (5-19); Blood Urea Nitrogen 18 mg/dL (6-20); Carbon Dioxide 26 mmol/L (22-29); Chloride 103 mmol/L (98-107); Free T4 Free Thyroxine 1.33 ng/dL (0.82-1.77); Glomerular Filtration Rate 64.1 mL/min (90-130); Glucose 105 mg/dL (65-115); Phosphorus 4.5 mg/dL (2.5-4.5); Potassium 4.3 mmol/L (3.5-5.1); Sodium 141 mmol/L (136-145); Thyroid Stimulating Hormone 1.06 uIU/mL (0.27-4.20)
[2020-02-23 17:25] LABS: Bilirubin Urine Neg (Negative); Blood Urine 2+ (Negative); Glucose Urine UA Norm (Normal); Ketones Urine Negative (Negative); Nitrate Urine Negative (Negative); Protein Urine Neg (Negative); Specific Gravity, Urine 1.015 (1.005-1.030); Urine Appearance Clear (CLEAR); Urine Color Yellow (Yellow); Urobilinogen Urine Norm (Negative); pH Urine 5 (5-7)
[2020-02-23 17:26] LABS: Add Urine Microscopic? YES; Leukocyte Esterase Urine Negative (Negative)
[2020-02-23 17:44] LABS: Urine Creatinine 95 mg/dL (28-217); Urine Protein Random 7 mg/dL
[2020-02-23 17:54] LABS: UPRO/UCREAT Ratio 0.07 mg/mg CR
[2020-02-23 18:25] LABS: Add Urine Culture? No; Bacteria Urine TRACE /hpf; RBC Urine 0-4 /hpf (0-2); Squamous Epithelial Cell Urine 0-4 /hpf (0-5)
== END 2020-02-23 15:34 | disposition home or self-care (01) ==
LOC: LAB 15:40
PROVIDERS: PCP Family Medicine; Visit Provider Internal Medicine Nephrology
DX: E89.0 Postprocedural hypothyroidism (principal); N18.30 Chronic kidney disease, stage 3 unspecified
CPT/HCPCS: 36415; 80069; 81001; 82570; 84156; 84439; 84443

== ENCOUNTER → 2020-03-04 00:01 | Outpatient (BNVA) | payer OTHER, SELFPAY | PROVIDERS: PCP Family Medicine; Visit Provider Obstetrics & Gynecology | DX: Z01.419 Encounter for gynecological examination (general) (routine) without abnormal findings (principal) | CPT/HCPCS: 82270 ==

== ENCOUNTER → 2020-03-06 13:51 | Outpatient (BNVA) | payer OTHER, SELFPAY | PROVIDERS: PCP Family Medicine; Visit Provider Internal Medicine | DX: M25.50 Pain in unspecified joint (principal); I73.00 Raynaud's syndrome without gangrene; Z11.59 Encounter for screening for other viral diseases; Z79.899 Other long term (current) drug therapy; Z79.52 Long term (current) use of systemic steroids; K90.0 Celiac disease; E03.9 Hypothyroidism, unspecified; R06.00 Dyspnea, unspecified | CPT/HCPCS: 99204 ==

== ENCOUNTER 2020-03-06 15:25 | Outpatient (CLI) | payer OTHER, SELFPAY ==
--- NOTE | 2020-03-06 15:42 | XR_ITS ---
WS: [id number] XR chest 2V* [id number] REASON FOR EXAM: Z79.899 - Other longterm (current) drug therapy FINDINGS: The chest is unchanged compared to 04/18/2019. The heart and mediastinum within normal limits. Calcified granulomatous changes in both lungs. No active pulmonary parenchymal or pleural disease. No significant abnormality of the bony thorax. XR/XR chest 2V* [id number] IMPRESSION: No significant chest abnormality.
--- NOTE | 2020-03-06 15:42 | XR_ITS ---
WS: [id number] XR foot LT 2V [id number] REASON FOR EXAM: M25.50 - Pain in unspecified joint FINDINGS: Mild hammertoe deformity. Mild narrowing in the MIP and DIP joints of the toes. Remainder of the join ts in the forefoot are unremarkable. No fracture or focal bone lesion. No soft tissue abnormality. Joint spaces in the mid foot are relatively well preserved. No fracture or focal bone lesion. No soft tissue abnormality. The joint spaces of the left hindfoot are well preserved. No fracture or focal bone lesion. No soft t issue abnormality. XR/XR foot LT 2V [id number] IMPRESSION: Mild osteoarthropathy as above.
--- NOTE | 2020-03-06 15:42 | XR_ITS ---
WS: [id number] XR hand RT 2V [id number] REASON FOR EXAM: M25.50 - Pain in unspecified joint FINDINGS: Mild narrowing of the joint spaces in the DIP and MIP joints of the fingers and thumb, these changes are most prominent in the fifth finger and the thumb. There is deformity of the base of the proximal phalanx of the right thumb, old healed fracture. Mild to moderate narrowing of the metacarpal phalangeal joint of the right thumb. No acute fracture or focal bone lesion. No soft tissue abnormality. XR/XR hand RT 2V [id number] IMPRESSION: Mild osteoarthritic changes in the fingers as above. Old healed fracture as above.
--- NOTE | 2020-03-06 15:42 | XR_ITS ---
WS: [id number] XR hand LT 2V [id number] REASON FOR EXAM: M25.50 - Pain in unspecified joint FINDINGS: Left hand appears relatively unchanged compared to 01/29/2011. There is mild to moderate narrowing of the joint spaces in the DIP and MIP joints of the fingers and thumb. No focal bony abnormality. No soft tissue abnormality. XR/XR hand LT 2V [id number] IMPRESSION: Stable mild osteoarthritic change in the fingers of the left hand as above
--- NOTE | 2020-03-06 15:42 | XRR_ITS ---
PROCEDURE INFORMATION: Exam: XR Right Foot Exam date and time: 03/06/2020 3:52 PM Age: 60 years old Clinical indication: Pain; Foot; Right; Additional info: M25.50 - pain in unspecified joint TECHNIQUE: Imaging protocol: XR Right foot. Views: 1 or 2 views. COMPARISON: [facility] Foot RIGHT 3 views 01/20/2018 3:27 PM FINDINGS: Bones/joints: Negative for acute bony abnormality. Soft tissues: Normal. XR/XR foot RT 2V [id number] IMPRESSION: No acute findings.
[2020-03-06 17:01] LABS: Basophils % 0.5 %; Eosinophils # 0.1 10^3/uL (0.0-0.8); Eosinophils % 0.6 %; Hematocrit 44.2 % (37.0-47.0); Hemoglobin 14.7 g/dL (11.5-15.3); Lymphocytes # 1.5 10^3/uL (0.8-4.8); Lymphocytes % 19.7 %; Mean Corpuscular HGB Conc 33.3 g/dL (30.0-36.0); Mean Corpuscular Hemoglobin 32.4 pg (28.0-34.0); Mean Corpuscular Volume 97.4 fL (81-99); Mean Platelet Volume 10.2 fL (7.4-10.4); Monocytes # 0.4 10^3/uL (0.2-0.9); Monocytes % 5.7 %; Neutrophils # 5.64 10^3/uL (1.8-7.7); Neutrophils % 73.2 %; Nucleated Red Blood Cells % 0 %; Platelet Count 348 10^3/cmm (130-400); Red Blood Count 4.54 10^6/uL (4.1-5.3); Red Cell Distribution Width 12.6 % (12.1-15.1); White Blood Count 7.7 10^3/uL (4.0-10.0)
[2020-03-06 18:13] LABS: Alanine Aminotransferase 30 U/L (0-33); Albumin Level 4.8 g/dL (3.5-5.2); Alkaline Phosphatase 74 IU/L (35-105); Anion Gap 14.1 (5-19); Aspartate Amino Transferase 21 U/L (0-32); Blood Urea Nitrogen 21 mg/dL (6-20); C Reactive Protein 1.7 mg/L (0.0-4.9); Calcium 10.1 mg/dL (8.5-10.5); Carbon Dioxide 27 mmol/L (22-29); Chloride 98 mmol/L (98-107); Globulin 2.6 g/dL (1.3-4.6); Glomerular Filtration Rate 85.6 mL/min (90-130); Glucose 105 mg/dL (65-115); Osmolality Calculated 283 mOsm/kg (285-295); Potassium 4.1 mmol/L (3.5-5.1); Sodium 135 mmol/L (136-145); Total Bilirubin 0.3 mg/dL (0.15-1.2); Total Protein 7.4 g/dL (6.6-8.7); Uric Acid 5.2 mg/dL (2.4-5.7); Vitamin B12 545 pg/mL (232-1245)
[2020-03-06 18:31] LABS: Erythrocyte Sedimentation Rate 9 mm/hr (0-15)
[2020-03-06 19:29] LABS: Hepatitis B Core AB, Total Non-Reactive (Nonreactive); Hepatitis B Surface Antigen Non-Reactive (Nonreactive); Hepatitis C Virus Antibody Non-Reactive (Nonreactive)
[2020-03-06 19:44] LABS: Complement C3 131 mg/dL (90-180)
[2020-03-06 19:56] LABS: Add Urine Microscopic? YES; Bilirubin Urine Neg (Negative); Blood Urine 2+ (Negative); Glucose Urine UA Norm (Normal); Ketones Urine Negative (Negative); Leukocyte Esterase Urine Negative (Negative); Nitrate Urine Negative (Negative); Protein Urine Neg (Negative); Specific Gravity, Urine 1.005 (1.005-1.030); Urine Appearance Clear (CLEAR); Urine Color Straw (Yellow); Urobilinogen Urine Norm (Negative); pH Urine 6.5 (5-7)
[2020-03-06 19:57] LABS: Add Urine Culture? No; Bacteria Urine TRACE /hpf; RBC Urine 0-4 /hpf (0-2); Squamous Epithelial Cell Urine 0-4 /hpf (0-5)
[2020-03-08 10:04] LABS: COMPLEMENT COMPONENT C3C 136 mg/dL (83-193); COMPLEMENT COMPONENT C4C 20 mg/dL (15-57)
[2020-03-08 12:38] LABS: CENTROMERE B ANTIBODY <1.0 NEG AI (<1.0 NEG); JO-1 ANTIBODY <1.0 NEG AI (<1.0 NEG); RNP ANTIBODY <1.0 NEG AI (<1.0 NEG); SCL-70 ANTIBODY <1.0 NEG AI (<1.0 NEG); SJOGREN'S ANTIBODY (SS-A) <1.0 NEG AI (<1.0 NEG); SM ANTIBODY <1.0 NEG AI (<1.0 NEG); SS-B <1.0 NEG AI (<1.0 NEG)
[2020-03-08 13:07] LABS: COMPLEMENT, TOTAL (CH50) >60 U/mL (31-60)
[2020-03-08 14:38] LABS: Cyclic Citrullinated Peptide <16 UNITS
[2020-03-08 15:09] LABS: ANA SCREEN, IFA NEGATIVE (NEGATIVE)
[2020-03-08 15:39] LABS: THYROID PEROXIDASE ANTIBODIES 4 IU/mL (<9)
[2020-03-10 17:23] LABS: HLA-B27 NEGATIVE (NEGATIVE)
[2020-03-12 14:33] LABS: Tissue Transglutaminase IgA Ab <1 U/mL; Tissue transglutaminase Ab.IgG 3 U/mL
[2020-03-13 02:37] LABS: DNA AB (DS) CRITHIDIA,IFA NEGATIVE (NEGATIVE)
[2020-03-13 08:08] LABS: Immunoglobulin A 148 mg/dL (47-310)
[2020-03-13 17:47] LABS: Vitamin B6 Plasma 92.1 ng/mL (2.1-21.7)
[2020-03-14 17:09] LABS: Gliadin Ab.IgA 4 U (<20); Gliadin Ab.IgG 1 U (<20)
== END 2020-03-06 15:26 | disposition home or self-care (01) ==
PROVIDERS: PCP Family Medicine; Visit Provider Internal Medicine
DX: M25.50 Pain in unspecified joint; D86.9 Sarcoidosis, unspecified; Z51.81 Encounter for therapeutic drug level monitoring; Z79.899 Other long term (current) drug therapy; M10.9 Gout, unspecified
CPT/HCPCS: 71046; 73120; 73620; 80053; 81001; 82607; 82784; 83516; 84207; 84550; 85025; 85651; 86140; 86160; 86431; 86704; 86803; 86812; 87340

== ENCOUNTER 2020-03-11 12:07 | Outpatient (CLI) | payer OTHER, SELFPAY ==
--- NOTE | 2020-03-11 12:11 | MM_ITS ---
WS: [id number] BILATERAL DIGITAL SCREENING MAMMOGRAPHY WITH CAD CLINICAL INFORMATION: SCREENING HISTORY: Screening mammogram. No current complaints. COMPARISON: and TECHNIQUE: Bilateral CC and MLO views. FINDINGS: Postoperative changes bilateral breast implants. Breast implant revision compared to the prior examin ation. Silicone granulomas in the right axilla presumably due to prior extracapsular implant rupture. The breasts are composed of heterogeneous fibroglandular density tissue, which can limit the detectio n of small underlying mass lesions. Punctate and lucent centered calcifications. Dense asymmetric den sity inner left breast adjacent to the implant measuring 2.3 x 2.1 cm. Recommend further evaluation with spot compression views and ultrasound. Right breast is unremarkable . MM/[place] [id number] IMPRESSION: BI-RADS: 0-Incomplete: Need additional imaging evaluation FOLLOW UP: Need Additional Imaging
== END 2020-03-11 12:08 | disposition home or self-care (01) ==
LOC: RADSHAW 12:10
PROVIDERS: PCP Family Medicine; Visit Provider Obstetrics & Gynecology
DX: Z12.31 Encounter for screening mammogram for malignant neoplasm of breast (principal); N64.89 Other specified disorders of breast; R92.1 Mammographic calcification found on diagnostic imaging of breast
CPT/HCPCS: 77067

== ENCOUNTER → 2020-03-26 14:19 | Outpatient (BNVA) | payer OTHER, SELFPAY | PROVIDERS: PCP Family Medicine; Visit Provider Internal Medicine | DX: M25.50 Pain in unspecified joint (principal); I73.00 Raynaud's syndrome without gangrene; K90.0 Celiac disease; N02.8 Recurrent and persistent hematuria with other morphologic changes; R53.83 Other fatigue | CPT/HCPCS: 99214 ==

== ENCOUNTER 2020-04-05 11:34 | Outpatient (CLI) | payer OTHER, SELFPAY ==
--- NOTE | 2020-04-05 11:30 | MM_ITS ---
WS: [id number] LEFT DIGITAL MAMMOGRAPHY WITH CAD CLINICAL INFORMATION: R92.2 - Inconclusive mammogram COMPARISON: March 11, 2020 TECHNIQUE: 4 views of the left breast were obtained. FINDINGS: The left breast is composed of heterogeneous fibroglandular density tissue, which can limit the detection of small underlying mass lesions. Postoperative changes left breast implant. Again seen is the dense asymmetry inner left breast adjace nt to the implant measuring 2.3x2.1 cm. Ultrasound is pending. ULTRASOUND BREAST LEFT TECHNIQUE: Ultrasound left breast focused area of concern. CLINICAL INFORMATION: R92.2 - Inconclusive mammogram COMPARISON: None. FINDINGS: Ultrasound o'clock position 6 cm from the nipple. Normal underlying soft tissue. Implant is visualiz ed. Palpable abnormality may be due to postoperative sequela from implant revision. No focal lesions to target for biopsy. Recommend 6 month follow-up to assess stability. MM/[place] [id number] IMPRESSION: BI-RADS: 3-Probably Benign FOLLOW UP: 6 Month Follow-up RECOMMEND 6 MONTH FOLLOW-UP LEFT BREAST DIAGNOSTIC MAMMOGRAPHY AND ULTRASOUND
--- NOTE | 2020-04-05 12:00 | US_ITS ---
WS: [id number] LEFT DIGITAL MAMMOGRAPHY WITH CAD CLINICAL INFORMATION: R92.2 - Inconclusive mammogram COMPARISON: March 11, 2020 TECHNIQUE: 4 views of the left breast were obtained. FINDINGS: The left breast is composed of heterogeneous fibroglandular density tissue, which can limit the detection of small underlying mass lesions. Postoperative changes left breast implant. Again seen is the dense asymmetry inner left breast adjace nt to the implant measuring 2.3x2.1 cm. Ultrasound is pending. ULTRASOUND BREAST LEFT TECHNIQUE: Ultrasound left breast focused area of concern. CLINICAL INFORMATION: R92.2 - Inconclusive mammogram COMPARISON: None. FINDINGS: Ultrasound o'clock position 6 cm from the nipple. Normal underlying soft tissue. Implant is visualiz ed. Palpable abnormality may be due to postoperative sequela from implant revision. No focal lesions to target for biopsy. Recommend 6 month follow-up to assess stability. US/US breast LT limited* [id number] IMPRESSION: BI-RADS: 3-Probably Benign FOLLOW UP: 6 Month Follow-up RECOMMEND 6 MONTH FOLLOW-UP LEFT BREAST DIAGNOSTIC MAMMOGRAPHY AND ULTRASOUND
== END 2020-04-05 11:35 | disposition home or self-care (01) ==
LOC: RADSHAW 11:37
PROVIDERS: PCP Family Medicine; Visit Provider Obstetrics & Gynecology
DX: R92.2 Inconclusive mammogram (principal); N64.89 Other specified disorders of breast
CPT/HCPCS: 76642; 77065

== ENCOUNTER 2020-04-05 13:02 | Outpatient (CLI) | payer OTHER, SELFPAY ==
--- NOTE | 2020-04-05 13:15 | XR_ITS ---
WS: [id number] Sacroiliac joints, 3 views, 04/05/2020 Clinical Data: JOINT PAIN, ARTHALGIA L40.9 PSORIASIS Comparison: None. Findings: The SI joints are normal in width. No erosion, sclerosis or destruction is seen. There are no fractur es or dislocations. The adjacent visualized pelvis and hips are unremarkable. XR/XR sacroiliac jts m 3V [id number] Impression: Negative SI joints.
--- NOTE | 2020-04-05 13:15 | XR_ITS ---
WS: [id number] Bilateral AP hips, 04/05/2020 Clinical Data: joint pain;arthralgia RBTO DR BECERRA, VINH LOPEZ Comparison: None. Findings: No fractures or dislocations are seen. The hips show no erosion, sclerosis, narrowing or cyst formati on. The adjacent pelvis is unremarkable. XR/XR hip BI 2V wo/[place] pel [id number] Impression: Negative bilateral AP hips.
== END 2020-04-05 13:03 | disposition home or self-care (01) ==
PROVIDERS: PCP Family Medicine; Visit Provider Internal Medicine
DX: M25.551 Pain in right hip (principal); M25.552 Pain in left hip; M25.50 Pain in unspecified joint
CPT/HCPCS: 72202; 73521

== ENCOUNTER 2020-06-30 11:15 | Emergency (ER) | payer OTHER, SELFPAY ==
[2020-06-30 11:17] VITALS: BP 171/99; PULSE 75; RESP 18; TEMP 36.5; O2SAT 96; BMI 26.4
--- NOTE | 2020-06-30 11:32 | ECG_ITS ---
[facility] Test Date: 2020-06-30 Pat Name: Dar Jasso Department: Room: Gender: Female Harness Rigger: : 1960 Requested By: Xiang Putnam Order Number: [id number] Ismael MD: Andreia Song M.D. Measurements Intervals [place] Rate: 68 P: 48 IA: 156 QRS: 81 QRSD: 100 T: 82 QT: 408 QTc: 437 Interpretive Statements SINUS RHYTHM INTERPRETATION BASED ON A DEFAULT AGE OF 40 YEARS Compared to ECG 04/18/2019 16:31:18 Sinus bradycardia no longer present Electronically Signed On 06-30-2020 22:47:52 CDT by Andreia Song M.D. [email or web address]
--- NOTE | 2020-06-30 11:33 | W.ED.URI ---
HPI - URI/Sore Throat General: Chief Complaint: Upper Respiratory Infection Stated Complaint: Cough/ Sinus problems Time Seen by Provider: 06/30/20 11:20 History of Present Illness: HPI Narrative: Is a 60-year-old female with past medical history IgA nephropathy, chronic kidney disease, coronary artery disease who comes to the ER complaining of 1 day bilateral maxillary sinus pain, sinus congestion and a mild cough. She says she has shortness of breath but that she has that every day related to her chronic heart condition she has. Denies chest pain. She is following primary care and cardiology for those problems. She has had both of her Covid vaccinations and has no other Covid symptoms MD elicited complaint: cough, nasal congestion and sinus pain Severity: mild Exacerbating factors: nothing Associated symptoms: Reports no associated symptoms; Deny abdominal pain, chest pain, diarrhea, ear or mastoid pain, headache(s) or nasal congestion Treatments prior to arrival: none Review of Systems General: Reports: 10 or more systems reviewed and unremarkable except in HPI and below Const: Denies: fatigue Eyes: Denies: change in vision, blurry vision or eye redness ENMT: Denies: throat pain, swelling of lips/tongue, ear or mastoid pain or nasal congestion Card: Denies: chest pain, palpitations, irregular heart rhythm, edema, dyspnea on exertion or orthopnea Resp: Denies: dyspnea, productive cough or non-productive cough GI: Denies: abdominal pain, diarrhea or GI cramping : Denies: flank pain, difficulty voiding, urinary frequency or urinary urgency Musc: Denies: neck pain, back pain, extremity pain, joint pain, joint redness, limited range of motion or muscle weakness Skin/Breast: Denies: rash, pruritus, erythema, skin pain or skin tenderness Neuro: Denies: headache(s), numbness in extremities, weakness in extremities, sensory changes, difficulty walking, dizziness, confusion or Slurred speech present Psych: Denies: anxiety or depression Endo: Denies: polyuria All/Imm: Denies: urticaria, throat swelling or tongue swelling PFSH ED PFSH: Medical History Celiac disease/sprue Chest pain Essential hypertension IgA nephropathy Migraine headache without aura Post-surgical hypothyroidism Shingles Vasculitis Surgical History H/O breast augmentation H/O eye surgery History of appendectomy History of thyroidectomy Family History Father ESRD (end stage renal disease) Urinary bladder cancer CAD (coronary artery disease) Mother Hypertension Diabetes Brother CAD (coronary artery disease) Social History Smoking and tobacco status: never smoked Alcohol intake: current Alcohol intake frequency: 3 or more drinks per day Alcohol type: wine Lives independently: Yes Household members: spouse Marital status: Physical Exam Const: COMMON NORMALS: no acute distress, average body habitus, patient oriented x3, no limitations, healthy appearing, alert and well nourished GENERAL APPEARANCE: cooperative, comfortable, well kempt and well developed ORIENTATION/CONSCIOUSNESS: Yes awake, Yes oriented to person, Yes oriented to place and Yes oriented to time HENMT: COMMON NORMALS: normocephalic, external ears normal and Normal external nose present HEAD & SCALP: normal to inspection and normocephalic NOSE: Normal external nose present EXTERNAL EAR: Yes external ears normal MOUTH: Normal oral and palatal mucosa present THROAT: posterior oropharynx normal OTHER: Tenderness to bilateral maxillary sinus Eye: COMMON NORMALS: Equal, round and reactive pupils present and EOMs intact bilaterally GENERAL EYE: appearance normal, both eyes and all related structures PUPIL: Yes Equal, round and reactive pupils present Neck/C-Spine: COMMON NORMALS: full ROM, no lymphadenopathy, no meningeal signs and no JVD GENERAL: Yes normal visual inspection Lymph: LYMPHATIC: no lymphadenopathy noted Chest: COMMONS NORMALS: normal inspection of the chest and normal palpation of entire chest wall Resp: COMMON NORMALS: normal respiratory effort, No retractions, No use of accessory muscles, clear to auscultation bilaterally and percussion normal EFFORT & INSPECTION: Yes able to speak in complete sentences AUSCULTATION: clear to auscultation bilaterally PERCUSSION: percussion normal Cardio: COMMON NORMALS: no JVD, regular rate, regular rhythm, S1 normal heart sound present, S2 normal heart sound present and Peripheral pulses 2+ throughout RATE: regular rate RHYTHM: regular rhythm HEART SOUNDS: S1 normal heart sound present and S2 normal heart sound present PERIPHERAL PULSES: Peripheral pulses 2+ throughout GI: COMMON NORMALS: Normal to inspection, nondistended, normoactive bowel sounds present, Soft to palpation, non-tender and no masses INSPECTION: Yes normal to inspection PALPATION: Yes Soft to palpation : COMMON NORMALS: Yes no CVA tenderness BLADDER/KIDNEY EXAM: Yes no CVA tenderness Back/Pelvis: COMMON NORMALS: no CVA tenderness, thoracic and lumbar spine normal to inspection, no thoracic nor lumbar tenderness and thoraco-lumbar ROM normal Extremity: COMMON NORMALS: normal to inspection, full ROM, capillary refill normal, no joint enlargement and no pedal edema GENERAL: Yes normal exam except as noted Neuro: COMMON NORMALS: patient oriented x3, CN's II-XII intact bilaterally, moves all extremities, no focal motor deficits, no sensory deficits noted and gait normal SENSORIUM/ORIENTATION: Yes alert, Yes oriented to person, Yes oriented to place and Yes oriented to time MENINGEAL SIGNS: Yes no meningeal signs Psych: COMMON NORMALS: mental status grossly normal, Normal thought process present, cooperative, normal affect and speech normal APPEARANCE: Yes well kempt ATTITUDE: Yes calm SPEECH: Yes normal speech THOUGHT PROCESS: Normal thought process present Skin: COMMON NORMALS: no rashes or lesions noted GENERAL SKIN EXAM: no rashes or lesions noted Course Vital Signs: Vital signs: Vital Signs Temperature 97.7 F 06/30/20 11:17 Pulse Rate 75 06/30/20 11:17 Respiratory Rate 18 06/30/20 11:17 Blood Pressure 171/99 06/30/20 11:17 Pulse Oximetry 96 06/30/20 11:17 MDM - URI/Sore Throat MDM Narrative: Medical decision making narrative: Patient is having a sinus infection. She has had both her Covid vaccinations. EKG normal. She continues to follow-up for cardiac and renal issues as an outpatient. Her only complaint here is sinus infection and will be treated as such. Azithromycin on discharge. It says there is a red dye allergy. She has tolerated azithromycin in the past with no significant allergy. She had the lip swelling to a penicillin. No specific red dye allergy or issue with azithromycin in the past Discharge Plan Discharge Patient Disposition: Home Clinical Impression: Sinusitis Condition: Stable Prescriptions: New azithromycin 250 mg tablet See Rx Instructions PO .COMPLEX Qty: 6 RF: 0 No Action MaquiRx PO RF: 0 Intestinal Formula PO RF: 0 D-Ribose PO RF: 0 metoprolol succinate 25 mg tablet extended release 24 hr 12.5 mg PO DAILY Qty: 90 RF: 3 magnesium 125 mg PO TID RF: 0 royal jelly 200 mg capsule PO RF: 0 nifedipine 30 mg tablet extended release 24hr 90 mg PO DIRECTED Qty: 270 RF: 3 bupropion HCl 150 mg tablet extended release 24 hr 150 mg PO QAM RF: 0 omega-3 fatty acids 1,000 mg capsule 1,000 mg PO DAILY RF: 0 ICaps AREDS [id number],[id number] capsule 1 cap PO BID RF: 0 pyridoxine (vitamin B6) [Vitamin B-6] 100 mg tablet 50 mg PO DAILY RF: 0 cholecalciferol (vitamin D3) 50 mcg (2,000 unit) capsule 50 mcg PO DAILY PRNRF: 0 Adult Probiotic 3 billion cell capsule 3,000 mmu cells PO DAILY PRNRF: 0 spironolactone 25 mg tablet 12.5 mg PO DAILY Qty: 45 RF: 3 pantoprazole 40 mg tablet,delayed release (DR/EC) 40 mg PO DAILY RF: 0 levothyroxine 112 mcg tablet 112 mcg PO DAILY RF: 0 duloxetine 60 mg capsule,delayed release(DR/EC) 60 mg PO DAILY RF: 0 Vitamin B-1 (mononitrate) 100 mg Tablet 100 mg PO DAILY Qty: 0 RF: 0 Thera 400 mcg Tablet 1 tab PO DAILY Qty: 0 RF: 0 lisinopril 10 mg tablet 30 mg PO DAILY RF: 0 Discharge Orders: Discharge ED (Routine); Ordered 06/30/20 Ordered By: Xiang Putnam Referrals: Chapo Velasquez MD [Primary Care Provider] - Discharge Diet: Advance as tolerated Discharge Activity: Resume usual activity Patient Instructions: Sinusitis (ED), Opioid Safety Activity Restrictions/Additional Instructions: You are suffering from a sinus infection. Please take the azithromycin as directed on the package. Follow-up with your primary care physician in a couple days to monitor improvement of your symptoms and return to the ER with worsening symptoms. Please also note that these pills do have red dye in them though it seems you have tolerated azithromycin in the past without any allergic symptoms still watch for rash and swelling of the lips and tongue and shortness of breath. If you have any of those symptoms please return to the ER immediately. Coding Level of Care Code ED Cytometry Technologist for Max Fwd Exam Comprehensive
[2020-06-30 12:13] VITALS: BP 162/93; PULSE 70; RESP 16; O2SAT 97
== END 2020-06-30 12:14 | disposition home or self-care (01) ==
PROVIDERS: Emergency Provider Family Medicine; PCP Family Medicine
DX: J32.9 Chronic sinusitis, unspecified (principal); I10 Essential (primary) hypertension
CPT/HCPCS: 93005; 99282

== ENCOUNTER → 2020-08-15 15:09 | Outpatient (BNVA) | payer OTHER, SELFPAY | PROVIDERS: PCP Family Medicine; Visit Provider Internal Medicine | DX: M25.50 Pain in unspecified joint (principal); K90.0 Celiac disease | CPT/HCPCS: 99213; 99214 ==

== ENCOUNTER 2020-11-19 11:21 | Outpatient (CLI) | payer OTHER, SELFPAY ==
[2020-11-19 12:42] LABS: Estmated Average Glucose 108; Hemoglobin A1C 5.4 % (4.0-6.0)
[2020-11-19 12:56] LABS: Cholesterol 221 mg/dL (0-200); HDL Cholesterol 67 mg/dL (60-100); LDL Cholesterol Calculated 142 mg/dL (50-129); LDL HDL Ratio 2.12 RATIO (0.00-3.22); Thyroid Stimulating Hormone 0.67 uIU/mL (0.27-4.20); Triglycerides 59 mg/dL (0-150)
== END 2020-11-19 11:22 | disposition home or self-care (01) ==
LOC: LAB 11:29
PROVIDERS: PCP Family Medicine; Visit Provider Internal Medicine
DX: R73.03 Prediabetes (principal)
CPT/HCPCS: 36415; 80061; 83036; 84439; 84443

== ENCOUNTER → 2021-02-04 13:50 | Outpatient (BNVA) | payer OTHER, SELFPAY | PROVIDERS: PCP Family Medicine; Visit Provider Nurse Practitioner Family | DX: Z20.822 Contact with and (suspected) exposure to COVID-19 (principal) | CPT/HCPCS: 87426 ==

== ENCOUNTER 2021-03-02 09:38 | Emergency (ER) | payer OTHER, SELFPAY ==
[2021-03-02 09:44] VITALS: BP 123/83; PULSE 79; RESP 16; TEMP 35.9; O2SAT 96; BMI 26.6
[2021-03-02] MEDS: famotidine 20 mg/2 mL INJ IVP (10:11)
[2021-03-02] MEDS: sodium chloride 0.9% 1,000 ML 999 ML IV (10:11)
[2021-03-02 10:16] VITALS: BP 125/79; PULSE 64; RESP 18; O2SAT 96
[2021-03-02 10:16] LABS: Basophils % 0.3 %; Eosinophils % 0.1 %; Hematocrit 44.2 % (37.0-47.0); Hemoglobin 14.9 g/dL (11.5-15.3); Lymphocytes # 1.4 10^3/uL (0.8-4.8); Lymphocytes % 10.1 %; Mean Corpuscular HGB Conc 33.7 g/dL (30.0-36.0); Mean Corpuscular Hemoglobin 31.9 pg (28.0-34.0); Mean Corpuscular Volume 94.6 fl (81-99); Mean Platelet Volume 10.6 fL (7.4-10.4); Monocytes # 1.1 10^3/uL (0.2-0.9); Monocytes % 7.6 %; Neutrophils # 11.38 10^3/uL (1.8-7.7); Neutrophils % 81.5 %; Nucleated Red Blood Cells % 0 %; Platelet Count 337 10^3/cmm (130-400); Red Blood Count 4.67 10^6/uL (4.1-5.3); Red Cell Distribution Width 13.8 % (12.1-15.1)
[2021-03-02 10:45] LABS: INR 0.87 (0.8-1.2)
[2021-03-02 10:46] LABS: Partial Thromboplastin Time 27.8 SECONDS (23.9-36.7)
[2021-03-02 10:54] LABS: Alanine Aminotransferase 44 U/L (0-33); Albumin Level 3.9 g/dL (3.5-5.2); Alkaline Phosphatase 94 IU/L (35-105); Anion Gap 18.6 (5-19); Aspartate Amino Transferase 27 U/L (0-32); Blood Urea Nitrogen 14 mg/dL (8-23); Calcium 8.5 mg/dL (8.5-10.5); Carbon Dioxide 23 mmol/L (22-29); Chloride 98 mmol/L (98-107); Globulin 2.2 g/dL (1.3-4.6); Glomerular Filtration Rate 85.4 mL/min (90-130); Glucose 120 mg/dL (65-115); Lipase 22 U/L (13-60); Osmolality Calculated 282 mOsm/kg (285-295); Potassium 4.6 mmol/L (3.5-5.1); Sodium 135 mmol/L (136-145); Total Bilirubin 0.4 mg/dL (0.15-1.2); Total Protein 6.1 g/dL (6.6-8.7)
[2021-03-02 11:12] LABS: Add Urine Microscopic? YES; Bilirubin Urine Neg (Negative); Blood Urine 2+ (Negative); Glucose Urine UA Norm (Normal); Ketones Urine Negative (Negative); Leukocyte Esterase Urine Negative (Negative); Nitrate Urine Negative (Negative); Protein Urine Neg (Negative); Urine Appearance Clear (CLEAR); Urine Color Yellow (Yellow); Urobilinogen Urine Norm (Negative); pH Urine 7 (5-7)
[2021-03-02 11:13] LABS: Bacteria Urine TRACE /hpf; Squamous Epithelial Cell Urine 0-4 /hpf (0-5); WBC Urine RARE /hpf (0-5)
[2021-03-02 11:14] LABS: Add Urine Culture? No
--- NOTE | 2021-03-02 11:42 | ED_ITS ---
HPI - General Adult General: Chief complaint: GI Bleed Stated complaint: BLOODY DIARRHEA SINCE LAST PM,NAUSEA,NO FEVER Time Seen by Provider: 03/02/21 09:57 History of Present Illness: HPI narrative: Patient is a 61-year-old female with history of IgA nephropathy, appendectomy currently not on any immunosuppressants presenting to the emergency room for evaluation of bloody diarrhea since this morning. Patient tells me that she ate a 2-week old food yesterday night and since then has been having diarrhea that became bloody earlier this morning. Patient denies any fever or chills but reports diffuse abdominal pain. Denies any nausea or vomiting, urinary symptoms, new vaginal bleeding, decreased p.o. intake. Onset:1 day ago Duration:1 day Location:home Severity:mild Review of Systems Narrative: Constitutional: No fever, no chills. HEENT: No vision changes CV: No chest pain, no palpitations PULM: no cough, no dyspnea. GI:+diffuse abdominal pain, -N/-V/+D. +bloody stool : No dysuria MSKEL: No muscle pain SKIN: No new rashes, no lesions. NEURO: No headache, no focal weakness. HEME: No visible bruises PSYCH: Normal mood PFSH ED PFSH: Medical History Celiac disease/sprue Chest pain Essential hypertension IgA nephropathy Migraine headache without aura Post-surgical hypothyroidism Shingles Vasculitis Surgical History H/O breast augmentation H/O eye surgery History of appendectomy History of thyroidectomy Family History Father ESRD (end stage renal disease) Urinary bladder cancer CAD (coronary artery disease) Mother Hypertension Diabetes Brother CAD (coronary artery disease) Social History Smoking and tobacco status: never smoked Alcohol intake: current Alcohol intake frequency: 3 or more drinks per day Alcohol type: wine Lives independently: Yes Household members: spouse Marital status: Physical Exam Narrative: EXAM NARRATIVE: Head: Atraumatic Eyes: PERRL, conjunctiva without injection ENT: Mucous membrane moist NECK: Supple, ROM intact LUNGS: LCTAB, no crackles/rhonchi CV: RRR ABDOMEN: Soft, mild generalized tenderness to palpation. NO guarding rebound, guarding, rigidity. No CVA tenderness to percussion. Neg Paz/Neg McBurney's point tenderness, no suprabupic tenderness to palpation. EXTREMITY: Normal ROM SKIN: No rash or erythema NEURO: Awake and alert, no focal motor deficits PSYCH: Normal mood and affect Course Vital Signs: Vital signs: Vital Signs Temperature 96.6 F L 03/02/21 09:44 Pulse Rate 70 03/02/21 11:47 Respiratory Rate 16 03/02/21 11:47 Blood Pressure 122/74 03/02/21 11:47 Pulse Oximetry 94 03/02/21 11:47 MDM - General Adult MDM Narrative: Medical decision making narrative: 61-year-old female history of IgA nephropathy, neck pain presented to the emergency room with bloody stool x1 day and diarrhea after eating dinner. Then, patient is afebrile with generalized tenderness to palpation in the abdomen. Patient has no guarding or rebound tenderness. White count of 14.0. At the present time, patient is well-appearing tolerate fluids?p.o. in the emergency room without any difficulty. At the present time, suspect the patient has gastroenteritis neuritis. Given the fact the patient is not immunosuppressed and symptoms fewer than 5 days, she will not need antibiotics currently. Patient reports symptomatically improved in the emergency. At the present time, I have given patient strict follow-up with Dr. Velasquez in 72 to 96 hours for repeat evaluation. No suspicion for other acute intra-abdominal pathology including SBO, biliary pathology, appendicitis, diverticulitis, or other emergent condition requiring surgery. Rx maalox, pepcid PRN dyspepsia, tylenol PRN pain, zofran PRN nausea/vomiting Disposition: Discharge. Patient counseled regarding diagnostic impression, treatment plan. Patient given ED strict return precautions to return for continuation, worsening, or development of new symptoms. Instructed to f/u w/ PCP regarding symptoms today. Patient verbalized understanding. She is given strict return precautions for any signs of worsening bloody stool output, fever, nausea vomiting, intractable pain, or any new concerning complaints. Lab Data: Labs: Lab Results 03/02/21 03/02/21 03/02/21 09:54 09:54 09:54 WBC 14.0 10^3/uL H 10 ^3/uL (4.0-10.0) RBC 4.67 10^6/uL 10^6 /uL (4.1-5.3) Hgb 14.9 g/dL g/dL (11.5-15.3) Hct 44.2 % % (37.0-47.0) MCV 94.6 fl fl (81-99) MCH 31.9 pg pg (28.0-34.0) MCHC 33.7 g/dL g/dL (30.0-36.0) RDW 13.8 % % (12.1-15.1) Plt Count 337 10^3/cmm 10^3 /cmm (130-400) MPV 10.6 fL H fL (7.4-10.4) Neut % (Auto) 81.5 % % Lymph % (Auto) 10.1 % % Hoke % (Auto) 7.6 % % Eos % (Auto) 0.1 % % Baso % (Auto) 0.3 % % Neut # (Auto) 11.38 10^3/uL H 1 0^3/uL (1.8-7.7) Lymph # (Auto) 1.4 10^3/uL 10^3/ uL (0.8-4.8) Hoke # (Auto) 1.1 10^3/uL H 10^ 3/uL (0.2-0.9) Eos # (Auto) 0.0 10^3/uL 10^3/ uL (0.0-0.8) Baso # (Auto) 0.0 10^3/uL 10^3/ uL (0.0-0.1) Nucleated RBC % (a uto) 0 % % Nucleated RBCs # 0.0 /100WBC /100W BC PT 12.10 SECONDS SEC ONDS (12.1-14.9) INR 0.87 (0.8-1.2) APTT 27.8 SECONDS SECO NDS (23.9-36.7) Sodium 135 mmol/L L mmol /L (136-145) Potassium 4.6 mmol/L mmol/L (3.5-5.1) Chloride 98 mmol/L mmol/L (98-107) Carbon Dioxide 23 mmol/L mmol/L (22-29) Anion Gap 18.6 (5-19) BUN 14 mg/dL mg/dL (8-23) Creatinine 0.7 mg/dL mg/dL (0.5-0.9) GFR Calculation 85.4 mL/min L mL/ min (90-130) Glucose 120 mg/dL H mg/dL (65-115) Calculated Osmolal ity 282 mOsm/kg L mOs m/kg (285-295) Calcium 8.5 mg/dL mg/dL (8.5-10.5) Total Bilirubin 0.4 mg/dL mg/dL (0.15-1.2) AST 27 U/L U/L (0-32) ALT 44 U/L H U/L (0-33) Alkaline Phosphata se 94 IU/L IU/L (35-105) Total Protein 6.1 g/dL L g/dL (6.6-8.7) Albumin 3.9 g/dL g/dL (3.5-5.2) Globulin 2.2 g/dL g/dL (1.3-4.6) Lipase 22 U/L U/L (13-60) Urine Color Urine Appearance Urine pH Ur Specific Gravit y Urine Protein Urine Glucose (UA) Urine Ketones Urine Blood Urine Nitrate Urine Bilirubin Urine Urobilinogen Ur Leukocyte Julianne ase Urine RBC Urine WBC Ur Squamous Epith Cells Amorphous Sediment Urine Bacteria 03/02/21 10:01 WBC RBC Hgb Hct MCV MCH MCHC RDW Plt Count MPV Neut % (Auto) Lymph % (Auto) Hoke % (Auto) Eos % (Auto) Baso % (Auto) Neut # (Auto) Lymph # (Auto) Hoke # (Auto) Eos # (Auto) Baso # (Auto) Nucleated RBC % (a uto) Nucleated RBCs # PT INR APTT Sodium Potassium Chloride Carbon Dioxide Anion Gap BUN Creatinine GFR Calculation Glucose Calculated Osmolal ity Calcium Total Bilirubin AST ALT Alkaline Phosphata se Total Protein Albumin Globulin Lipase Urine Color Yellow (Yellow) Urine Appearance Clear (CLEAR) Urine pH 7 (5-7) Ur Specific Gravit y 1.010 (1.005-1.030) Urine Protein Neg (Negative) Urine Glucose (UA) Norm (Normal) Urine Ketones Negative (Negative) Urine Blood 2+ H (Negative) Urine Nitrate Negative (Negative) Urine Bilirubin Neg (Negative) Urine Urobilinogen Norm mg/dL mg/dL (Negative) Ur Leukocyte Julianne ase Negative (Negative) Urine RBC 5-10 /hpf H /hpf (0-2) Urine WBC Rare /hpf /hpf (0-5) Ur Squamous Epith Cells 0-4 /hpf H /hpf (0-5) Amorphous Sediment Not Reportable Urine Bacteria Trace /hpf /hpf (NONE) Discharge Plan Discharge Patient Disposition: Home Clinical Impression: Bloody stool Condition: Stable Prescriptions: New acetaminophen 500 mg tablet 500 mg PO Q6H PRN (Reason: pain) 5 Days Qty: 20 RF: 0 Zofran 4 mg tablet 4 mg PO TID PRN (Reason: nausea and vomiting) 4 Days Qty: 12 RF: 0 Pepcid 20 mg tablet 20 mg PO BID PRN (Reason: abdominal pain) 10 Days Qty: 20 RF: 0 Maalox Advanced 1,000-60 mg tablet,chewable 1 tab PO TID PRN (Reason: abdominal pain) 7 Days Qty: 21 RF: 0 No Action nifedipine 30 mg tablet extended release 24hr 90 mg PO DIRECTED Qty: 270 RF: 3 bupropion HCl 150 mg tablet extended release 24 hr 150 mg PO QAM RF: 0 cholecalciferol (vitamin D3) 50 mcg (2,000 unit) capsule 50 mcg PO DAILY PRNRF: 0 Adult Probiotic 3 billion cell capsule 3,000 mmu cells PO DAILY PRNRF: 0 omega-3 fatty acids 1,000 mg capsule 1,000 mg PO DAILY PRNRF: 0 pyridoxine (vitamin B6) [Vitamin B-6] 100 mg tablet 50 mg PO DAILY PRNRF: 0 Thera 400 mcg tablet 1 tab PO DAILY PRNRF: 0 metoprolol succinate 25 mg tablet extended release 24 hr 25 mg PO DAILY Qty: 90 RF: 3 spironolactone 25 mg tablet 12.5 mg PO DAILY Qty: 45 RF: 3 levothyroxine 112 mcg tablet 112 mcg PO DAILY RF: 0 duloxetine 60 mg capsule,delayed release(DR/EC) 60 mg PO DAILY RF: 0 lisinopril 10 mg tablet 30 mg PO DAILY RF: 0 pantoprazole 40 mg tablet,delayed release (DR/EC) 40 mg PO DAILY PRNRF: 0 Discharge Orders: Discharge ED (Routine); Ordered 03/02/21 Ordered By: Jeremy Carrasquillo Referrals: Chapo Velasquez MD [Primary Care Provider] - Discharge Diet: Advance as tolerated Discharge Activity: Resume usual activity Patient Instructions: Gastroenteritis (ED) Activity Restrictions/Additional Instructions: Follow-up with Dr. Velasquez in 72 to 96 hours for repeat evaluation. Come back to the emergency room if you have any bloody stool for more than 5 days. To the emergency room you have any fever or chills, abdominal pain, worsening bleeding, or any new concerning complaints. Coding Level of Care Code ED Concrete Truck Driver for Max Cruz
[2021-03-02 11:47] VITALS: BP 122/74; PULSE 70; RESP 16; O2SAT 94
== END 2021-03-02 11:45 | disposition home or self-care (01) ==
PROVIDERS: Emergency Provider Emergency Medicine; PCP Family Medicine
DX: K92.1 Melena (principal); I10 Essential (primary) hypertension
CPT/HCPCS: 80053; 81001; 83690; 85025; 85610; 85730; 96361; 96374; 99284; J3490; J7030

== ENCOUNTER 2021-03-13 15:26 | Outpatient (CLI) | payer OTHER, SELFPAY ==
--- NOTE | 2021-03-13 15:45 | USCV_ITS ---
Dar Jasso Age: 61 Gender: F : 1960 Exam Date: 03/13/2021 15:46 Ordering Phys: Maira Riojas MD ([email or web address]) Technologist: ERIN Exam Location: [facility] [place] Indication: chronic shortness of breath for years. History of asthma. No history of cardiac intervention per patient. BP: / HR: 58 Rhythm: Sinus Technical Quality: Adequate MEASUREMENTS (Male / Female) Normal Values 2D ECHO LV Diastolic Diameter PLAX 4.2 cm 4.2 - 5.9 / 3.9 - 5.3 cm LV Systolic Diameter PLAX 2.4 cm IVS Diastolic Thickness 1.0 cm 0.6 - 1.0 / 0.6 - 0.9 cm IVS Systolic Thickness 1.3 cm LVPW Diastolic Thickness 1.1 cm 0.6 - 1.0 / 0.6 - 0.9 cm LVPW Systolic Thickness 1.5 cm LVOT Diameter 2.0 cm LV Ejection Fraction 2D Teich 69.1 % LV Ejection Fraction MOD 2C 74.0 % LV Ejection Fraction 2C AL 75.5 % LA Diameter 3.4 cm LA Width 3.6 cm LA Height 3.7 cm RA Width 2.7 cm RA Height 3.5 cm Aorta at Sinotubular Diameter 3.2 cm M-MODE Aortic Annulus Diameter 3.3 cm LA Ao Ratio MM 1.0 MV E Point Septal Separation 0.1 cm DOPPLER AV Peak Velocity 143.0 cm/s LVOT Peak Velocity 110.0 cm/s AV Area Cont Eq vti 2.8 cm squared AV Area Cont Eq pk 2.3 cm squared MV Peak Velocity 68.0 cm/s MV Area PHT 2.2 cm squared Mitral E to A Ratio 0.9 MV E' Velocity 33.5 cm/s Mitral E to MV E' Ratio 5.7 Mitral E to LV E' Lateral Ratio 5.3 Mitral E to LV E' Septal Ratio 6.4 PV Peak Velocity 106.7 cm/s RV Acceleration Time 0.1 s RV Ejection Time 0.4 s RV AcT/ET 0.4 FINDINGS Left Ventricle Normal left ventricular cavity size. Normal left ventricular systolic function. No regional wall motion abnormalities. Left ventricular ejection fraction is estimated at 60 %. Grade I/IV diastolic dysfunction (abnormal relaxation filling pattern), normal to mildly elevated filling pressures. Right Ventricle The right ventricle is normal in size and function. RVSP could not be calculated due to incomplete tricuspid regurgitation velocity profile. Right Atrium The right atrium is normal in size. Left Atrium The left atrium is normal in size. Mitral Valve Mildly thickened mitral valve. No mitral valve stenosis. Mild mitral valve regurgitation. Aortic Valve Mild aortic valve calcification. No aortic valve stenosis. Trace aortic valve regurgitation. Tricuspid Valve Structurally normal tricuspid valve without significant stenosis or regurgitation. Pulmonic Valve Structurally normal pulmonic valve without significant stenosis. There is no pulmonic regurgitation. Pericardium Normal pericardium without effusion. Aorta Normal ascending aorta dimension. CONCLUSIONS 1-Normal left ventricular cavity size. Normal left ventricular systolic function. No regional wall motion abnormalities. Left ventricular ejection fraction is estimated at 60 %. Grade I/IV diastolic dysfunction (abnormal relaxation filling pattern), normal to mildly elevated filling pressures. 2-No significant valve abnormalities. 3-There is no pericardial effusion. 4-No significant change since the prior echocardiogram study of 09/18/2015. Maira Riojas MD (Electronically Signed) Final Date: 13 March 2021 19:22 S
== END 2021-03-13 15:27 | disposition home or self-care (01) ==
LOC: RAD 15:30
PROVIDERS: PCP Family Medicine; Visit Provider Internal Medicine Cardiovascular Disease
DX: R06.02 Shortness of breath (principal)
CPT/HCPCS: 93306

== ENCOUNTER 2021-03-26 07:55 | Outpatient (CLI) | payer OTHER, SELFPAY ==
--- NOTE | 2021-03-26 08:02 | US_ITS ---
WS: [id number] ULTRASOUND RENAL TECHNIQUE: Ultrasound examination of both kidneys. CLINICAL INFORMATION: R FLANK PAIN COMPARISON: Ultrasound renal November 22, 2018 FINDINGS: Kidneys are normal in appearance. No hydronephrosis in either kidney. Normal renal echogeni city. RIGHT: Right kidney is normal in size and appearance. Echogenicity: Normal. Cortical thickness: 1.5 cm; Normal. Hydronephrosis: None. Perinephric fluid: None. Right kidney measures: 9.5 cm x 3.9 cm x 3.9 cm. LEFT: Small echogenic lesion left renal cortex may represent a small incidental angiomyolipoma measuring 6 mm. Left kidney is normal in size and appearance. Echogenicity: Normal. Cortical thickness: 1.7 cm; Normal. Hydronephrosis: None. Perinephric fluid: None. Left kidney measures: 10.2 cm x 4.5 cm x 4.8 cm. Normal visualized aorta. US/US renal BI* [id number] IMPRESSION: 1. No hydronephrosis in either kidney. 2. Bladder is decompressed. 3. Small echogenic lesion left renal cortex may represent a small incidental a ngiomyolipoma measuring 6 mm. 4. No other significant findings.
== END 2021-03-26 07:56 | disposition home or self-care (01) ==
LOC: RAD 07:59
PROVIDERS: PCP Family Medicine; Visit Provider Registered Nurse
DX: R10.9 Unspecified abdominal pain (principal); N28.9 Disorder of kidney and ureter, unspecified
CPT/HCPCS: 76770

== ENCOUNTER 2021-06-20 08:39 | Outpatient (CLI) | payer OTHER, SELFPAY ==
--- NOTE | 2021-06-20 08:50 | XR_ITS ---
WS: [id number] DEXA (DUAL ENERGY X-RAY ABSORPTIOMETRY) Bone mineral density was performed using a Symptify machine. HISTORY: POST MENOPAUSAL COMPARISON: None available. Lumbar spine BMD (L1-L4): 1.004 g/cm2 T score: -1.5 Z score: -0.6 Total hip BMD: Left: 0.693 g/cm2. T score: -2.5 Z score: -1.8 Right: 0.636 g/cm2. T score: -2.9 Z score: -2.3 10 year probability of a major osteoporotic fracture is 53%. XR/XR DEXA axial skeleton* [id number] IMPRESSION: OSTEOPOROSIS based upon the WHO classification for females.
== END 2021-06-20 08:40 | disposition home or self-care (01) ==
PROVIDERS: PCP Family Medicine; Visit Provider Family Medicine
DX: Z78.0 Asymptomatic menopausal state (principal); M81.0 Age-related osteoporosis without current pathological fracture
CPT/HCPCS: 77080

== ENCOUNTER 2021-08-06 13:33 | Outpatient (CLI) | payer OTHER, SELFPAY ==
--- NOTE | 2021-08-06 13:59 | MM_ITS ---
WS: [id number] BILATERAL 3D TOMOSYNTHESIS DIGITAL DIAGNOSTIC MAMMOGRAPHY WITH CAD CLINICAL INFORMATION: 6 MO F/U DENSE ASYMMETRY HISTORY: Six-month follow-up. Bilateral breast implants with revision. COMPARISON: April 05, 2020 TECHNIQUE: Bilateral CC, MLO, and ML views. FINDINGS: Postoperative bilateral implants. Bilateral silicone granulomas in both axilla. The breasts are composed of heterogeneous fibroglandular density, which can limit the detection of sm all underlying mass lesions. Punctate and lucent centered calcifications. Stable asymmetric density a djacent to the breast implant measuring 2.3 x 2.1 cm is unchanged. Ultrasound LEFT breast is pending. RIGHT breast is unchanged. ULTRASOUND BREAST LEFT TECHNIQUE: Ultrasound left breast focused area of concern. CLINICAL INFORMATION: 6 MO F/U DENSE ASYMMETRY FINDINGS: Ultrasound LEFT breast at the 9:00 position 6 cm from the nipple. Normal underlying parenchymal tissu e. No cystic or solid lesions. No lesions to target for biopsy. Underlying LEFT breast implant. MM/[place] [id number] IMPRESSION: Dense asymmetry inner LEFT breast adjacent to the implant is stable and likely due to postoperative sequela. No abnormalities on the ultrasound im aging. BI-RADS: 2-Benign FOLLOW UP: 1 Year Follow-up Recommend return to annual screening mammography.
== END 2021-08-06 13:34 | disposition home or self-care (01) ==
LOC: RADSHAW 13:35
PROVIDERS: PCP Family Medicine; Visit Provider Family Medicine
DX: Z98.82 Breast implant status (principal)
CPT/HCPCS: 76642; 77062

== ENCOUNTER 2021-10-28 13:39 | Outpatient (CLI) | payer OTHER, SELFPAY ==
[2021-10-28 14:36] LABS: Free T4 Free Thyroxine 1.12 ng/dL (0.82-1.77); Thyroid Stimulating Hormone 1.88 uIU/mL (0.27-4.20)
== END 2021-10-28 13:40 | disposition home or self-care (01) ==
LOC: LAB 13:41
PROVIDERS: PCP Family Medicine; Visit Provider Internal Medicine
DX: E03.9 Hypothyroidism, unspecified (principal)
CPT/HCPCS: 84439; 84443

== ENCOUNTER 2022-02-04 07:31 | Outpatient (CLI) | payer OTHER, SELFPAY ==
--- NOTE | 2022-02-02 08:44 | PC.NURSE ---
The patient is here for an exercise sestamibi stress test. 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 She wishes to do a chemical stress test, but forgot about her caffeine restrictions and drank 2 cups of coffee this AM just prior to arrival. Dr. José was called with no answer. A message was left by this nurse for Dr. José to call back jim.
--- NOTE | 2022-02-02 09:06 | PC.NURSE ---
Order received via telephone from Dr. José to change the exercise sestamibi to a lexiscan sestamibi stress test. Typed instructions given to the patient to check in Friday February 04, 2022 at 0730. She verbalized her understanding.
[2022-02-04 07:31] VITALS: BMI 27.1
--- NOTE | 2022-02-04 08:14 | ECG_ITS ---
[facility] Test Date: 2022-02-04 Pat Name: Dar Jasso Department: Room: Gender: Female Community Liaison: : 1960 Requested By: Erika José Order Number: [id number] Ismael MD: Erika José M.D. Interpretive Statements NAME OF STUDY: LEXISCAN SESTAMIBI STRESS TEST INDICATION: Chest Pain PROCEDURE: At the baseline, the blood pressure was 150/91 mm Hg with a heart rate of 64 bpm. The electrocardiogram showed sinus rhythm, normal axis with normal ST and T's. The Lexiscan was infused over a period of 20 seconds. A total of 0.4 milligrams of Lexiscan was infused. The stress phase was continued for a total of 5 minutes. Heart rate at the end of the stress phase was 76 bpm with a blood pressure of 128/81 mm Hg. The EKG at the peak infusion revealed no significant ST-T wave changes. The study was terminated due to protocol completion. Sestamibi was injected 20 seconds after the Lexiscan infusion. Blood pressure at the end of the recovery phase was 142/83 mm Hg with a heart rate of 64 beats per minute. CONCLUSION: 1. No significant EKG changes with the LexiScan infusion. 2. No LexiScan induced chest pain or cardiac arrhythmia. 3. Normal blood pressure and heart rate response. 4. Sestamibi/sestamibi perfusion scan pending; see separate report. Electronically Signed On 02-09-2022 22:51:45 MANUFACTURING OPERATIONS MANAGER by Erika José M.D. [id number]
--- NOTE | 2022-02-04 08:14 | NMCV_ITS ---
NM ian perf SPECT r/s* [id number] Dar Jasso Age: 62 Gender: F : 1960 Exam Date: 02/04/2022 08:14 Ordering Phys: Erika José MD ([email or web address]) Technologist: TIFFANY [place] Exam Location: [facility] Indications: CHEST PAIN STRESS TEST Please see separate stress test report in [facility] for full findings IMAGE PROTOCOL Rest/Stress 1 Lexiscan Day Radiopharmaceutical Dose (mCi) Administration Site Administered by Rest: Tc-99m 9.1 IV TIFFANY Wells Sestamibi Stress:Tc-99m 26.2 IV TIFFANY Wells Sestamibi Rest: 04-Feb-2022 60 Discovery 630 Stress: 04-Feb-2022 30 Discovery 630 0.4mg Lexiscan. Supine position only as patient was unable to lay prone. SPECT RESULTS Technical Quality: Excellent Raw Data Analysis: Normal Image Corrections: No attenuation or motion correction applied Summed Stress Score: 0 Summed Rest Score: 0 Summed Difference Score: 0 PERFUSION FINDINGS SPECT images demonstrate homogeneous tracer distribution throughout the myocardium. FUNCTIONAL RESULTS (calculated via Gated SPECT) Stress Image LV EF (%): 85 Stress EDV (mL):73 TID: 0.98 Stress ESV (mL):11 FUNCTIONAL FINDINGS: The left ventricle is normal in size. Transient Ischemia Dilatation of 0.98. There is normal left ventricular systolic function. The left ventricular ejection fraction is normal with a value of 85%. There is hyperdynamic left ventricular wall thickening. IMPRESSIONS 1. Myocardial perfusion imaging is normal. 2. Overall left ventricular systolic function is hyperdynamic without regional wall motion abnormalities, LVEF=85%. 3. EKG portion of the study will be reported separately. Erika José MD (Electronically Signed) Final Date: 06 February 2022 12:29 S
[2022-02-04] MEDS: regadenoson 0.4 Mg/5 ml Syringe IVP (10:35)
[2022-02-04 10:48] VITALS: BP 145/69; PULSE 72
== END 2022-02-04 07:32 | disposition home or self-care (01) ==
PROVIDERS: PCP Family Medicine; Visit Provider Internal Medicine Cardiovascular Disease
DX: R07.9 Chest pain, unspecified (principal)
CPT/HCPCS: 36415; 78452; 93017; A9500; J2785

== ENCOUNTER 2022-04-10 13:09 | Outpatient (CLI) | payer OTHER, SELFPAY ==
--- NOTE | 2022-04-10 13:00 | ECG_ITS ---
[facility] Test Date: 2022-04-10 Pat Name: Dar Jasso Department: Room: Gender: Female Dehydration Plant Operator: : 1960 Requested By: Chapo Askew Order Number: [id number] Ismael MD: Erika José M.D. Measurements Intervals [place] Rate: 67 P: 145 NE: 144 QRS: 109 QRSD: 109 T: 118 QT: 411 QTc: 435 Interpretive Statements SINUS RHYTHM ARM LEADS REVERSED [INVERTED P AND QRS IN I] Compared to ECG 06/30/2020 11:42:05 No significant changes Electronically Signed On 04-10-2022 16:52:44 FIRST FRONT VENTILATOR by Erika José M.D. [id number] f
== END 2022-04-10 13:10 | disposition home or self-care (01) ==
PROVIDERS: PCP Family Medicine; Visit Provider Nurse Practitioner Adult Health
DX: I10 Essential (primary) hypertension (principal)
CPT/HCPCS: 93005

== ENCOUNTER 2022-05-04 15:12 | Outpatient (CLI) | payer OTHER, SELFPAY ==
[2022-05-04 16:08] LABS: Basophils # 0.1 10^3/uL (0.0-0.1); Basophils % 0.8 %; Eosinophils # 0.1 10^3/uL (0.0-0.8); Eosinophils % 2.2 %; Hematocrit 42.4 % (37.0-47.0); Lymphocytes % 33.2 %; Mean Corpuscular Hemoglobin 32.3 pg (28.0-34.0); Mean Corpuscular Volume 97.7 fl (81-99); Mean Platelet Volume 10.6 fL (7.4-10.4); Monocytes # 0.6 10^3/uL (0.2-0.9); Monocytes % 9.5 %; Neutrophils # 3.24 10^3/uL (1.8-7.7); Nucleated Red Blood Cells % 0 %; Platelet Count 362 10^3/cmm (130-400); Red Blood Count 4.34 10^6/uL (4.1-5.3)
[2022-05-04 16:29] LABS: Add Urine Culture? No; Bacteria Urine TRACE /hpf; Bilirubin Urine Neg (Negative); Blood Urine Neg (Negative); Glucose Urine UA Norm (Normal); Ketones Urine Negative (Negative); Leukocyte Esterase Urine Negative (Negative); Nitrate Urine Negative (Negative); Protein Urine Neg (Negative); Urine Appearance Clear (CLEAR); Urine Color Yellow (Yellow); Urobilinogen Urine Norm (Negative); pH Urine 6.5 (5-7)
[2022-05-04 16:43] LABS: Free T4 Free Thyroxine 1.31 ng/dL (0.82-1.77); Thyroid Stimulating Hormone 0.53 uIU/mL (0.27-4.20)
[2022-05-04 16:50] LABS: Albumin Level 4.3 g/dL (3.5-5.2); Blood Urea Nitrogen 20 mg/dL (8-23); Calcium 9.3 mg/dL (8.5-10.5); Carbon Dioxide 27 mmol/L (22-29); Chloride 97 mmol/L (98-107); Glomerular Filtration Rate 85.1 mL/min (90-130); Glucose 91 mg/dL (65-115); Phosphorus 3.6 mg/dL (2.5-4.5); Sodium 134 mmol/L (136-145)
[2022-05-04 16:54] LABS: Anion Gap 14.3 (5-19); Potassium 4.3 mmol/L (3.5-5.1)
[2022-05-04 16:56] LABS: Creatinine Urine, Random 43 mg/dL (28-217); Microalbum Creatinine Ratio Ur 23 mg/dL (0-20); Microalbumin Random Urine 1 ug/dL (0-20)
== END 2022-05-04 15:13 | disposition home or self-care (01) ==
PROVIDERS: Internal Medicine; PCP Family Medicine; Visit Provider Internal Medicine Nephrology
DX: N18.30 Chronic kidney disease, stage 3 unspecified (principal); N02.8 Recurrent and persistent hematuria with other morphologic changes; R80.0 Isolated proteinuria
CPT/HCPCS: 80069; 81001; 82044; 84439; 84443; 85025

== ENCOUNTER 2022-07-21 10:56 | Outpatient (CLI) | payer OTHER, SELFPAY ==
--- NOTE | 2022-07-21 11:00 | MR_ITS ---
WS: [id number] MRI BRAIN WITHOUT CONTRAST HISTORY: R51.9 - Headache, unspecified COMPARISON: 04/20/2019 TECHNIQUE: Diffusion imaging, multiplanar T1, T2 and FLAIR imaging obtained. No evidence for acute infarct or hemorrhage. Yoon-white matter differentiation is normal. No remote or acute infarcts are volume loss. Ventricles and extra-axial spaces are normal. No inferior displacement of cerebellar tonsils. The sella turcica and pituitary gland are unremarkabl e. Dural venous sinuses and [place] of [place] demonstrate no abnormality on this unenhanced studies. Paranasal sinuses: Clear. Mastoid air cells: Normal. Calvarium and scalp: Intact. MR/MR head wo con* [id number] IMPRESSION: 1. Unremarkable noncontrast MRI brain. 2. No ischemia or prior infarct. No hemorrhage.
== END 2022-07-21 10:57 | disposition home or self-care (01) ==
LOC: RAD 11:03
PROVIDERS: PCP Family Medicine; Visit Provider Psychiatry & Neurology Neurology
DX: R51.9 Headache, unspecified (principal)
CPT/HCPCS: 70551

== ENCOUNTER 2022-12-03 08:27 | Outpatient (CLI) | payer OTHER, SELFPAY ==
--- NOTE | 2022-12-03 08:36 | CT_ITS ---
WS: [id number] CT SINUSES TECHNIQUE: Noncontrast CT of the paranasal sinuses with coronal and sagittal reformatted images. CLINICAL INFORMATION: FRONTAL SINUS PAIN COMPARISON: None. DLP: 420.[address] scans at [facility] use at least one of these dose optimization techniques: automated e xposure control; mA and/or kV adjustment per patient size (includes targeted exams where dose is matc hed to clinical indication); or iterative reconstruction. FINDINGS: Minimal nasal septal deviation. Ostiomeatal units are patent. Paranasal sinuses are well aerated. Fro ntal sinuses well aerated. Mild mucosal thickening in the ethmoid air cells. Sphenoid sinuses are wel l aerated. Mastoid air cells are well aerated. Normal posterior nasopharynx and parapharyngeal fat. M ild cavernous carotid calcification. IMPRESSION: 1. Minimal nasal septal deviation. 2. Paranasal sinuses are well aerated. Ostiomeatal units are patent. 3. Normal posterior nasopharynx. 4. Mastoid air cells are well aerated.
== END 2022-12-03 08:28 | disposition home or self-care (01) ==
PROVIDERS: PCP Family Medicine; Visit Provider Family Medicine
DX: R51.9 Headache, unspecified (principal); J34.2 Deviated nasal septum
CPT/HCPCS: 70486

== ENCOUNTER 2022-12-09 14:39 | Outpatient (CLI) | payer OTHER, SELFPAY ==
[2022-12-09 15:39] LABS: Bilirubin Urine Neg (Negative); Blood Urine Neg (Negative); Glucose Urine UA Norm (Normal); Ketones Urine Negative (Negative); Leukocyte Esterase Urine Negative (Negative); Nitrate Urine Negative (Negative); Protein Urine Neg (Negative); Urine Appearance Clear (CLEAR); Urine Color Yellow (Yellow); Urobilinogen Urine Norm (Negative); pH Urine 6 (5-7)
[2022-12-09 15:40] LABS: Add Urine Culture? No; RBC Urine 0-4 /hpf (0-2); Squamous Epithelial Cell Urine 0-4 /hpf (0-5); WBC Urine 0-4 /hpf (0-5)
[2022-12-09 15:46] LABS: Basophils # 0.1 10^3/uL (0.0-0.1); Basophils % 0.9 %; Eosinophils # 0.2 10^3/uL (0.0-0.8); Eosinophils % 2.6 %; Hematocrit 39.8 % (36-47); Lymphocytes # 1.8 10^3/uL (0.8-4.8); Lymphocytes % 30.9 %; Mean Corpuscular HGB Conc 32.7 g/dL (30-55); Mean Corpuscular Hemoglobin 31.6 pg (27-33); Mean Corpuscular Volume 96.6 fl (85-98); Mean Platelet Volume 9.9 fL (7.4-10.4); Monocytes # 0.5 10^3/uL (0.2-0.9); Monocytes % 7.9 %; Neutrophils # 3.29 10^3/uL (1.8-7.7); Neutrophils % 57.5 %; Nucleated Red Blood Cells % 0 %; Platelet Count 325 10^3/cmm (157-399); Red Blood Count 4.12 10^6/uL (3.85-5.65); White Blood Count 5.72 10^3/uL (3.29-11.43)
[2022-12-09 16:02] LABS: Albumin Level 4.4 g/dL (3.5-5.2); Anion Gap 13.4 (5-19); Blood Urea Nitrogen 12 mg/dL (8-23); Calcium 9.6 mg/dL (8.5-10.5); Carbon Dioxide 26 mmol/L (22-29); Chloride 103 mmol/L (98-107); Glomerular Filtration Rate 72.9 mL/min (90-130); Glucose 120 mg/dL (65-115); Phosphorus 3.5 mg/dL (2.5-4.5); Potassium 4.4 mmol/L (3.5-5.1); Sodium 138 mmol/L (136-145)
== END 2022-12-09 14:40 | disposition home or self-care (01) ==
PROVIDERS: PCP Family Medicine; Visit Provider Internal Medicine Nephrology
DX: I12.9 Hypertensive chronic kidney disease with stage 1 through stage 4 chronic kidney disease, or unspecified chronic kidney disease (principal)
CPT/HCPCS: 80069; 81001; 85025

== ENCOUNTER 2023-01-06 12:56 | Outpatient (CLI) | payer OTHER, SELFPAY ==
--- NOTE | 2023-01-06 13:10 | MM_ITS ---
WS: [id number] Bilateral screening 3D tomosynthesis digital mammogram, 01/06/2023 Clinical Data: SCREEN Comparison: 08/06/2021, 03/11/2020, 03/10/2013, 04/02/2011, 01/20/2010, 07/22/2009, 11/12/2008, 04/18/2007, 02/02/2008, 05/27/2006. Findings: The breast parenchymal pattern shows heterogeneous density. No spiculated masses or clustered calcifi cations are seen. There are no secondary signs of carcinoma. The patient has had bilateral augmentati on mammoplasty implants. Impression: 1. Negative bilateral mammogram unchanged. 2. Recommend annual screening mammograms. MM/[place] [id number] BIRADS: 2-Benign FOLLOW UP: 1 Year Follow-up The CAD field checker was used.
== END 2023-01-06 12:57 | disposition home or self-care (01) ==
PROVIDERS: PCP Family Medicine; Visit Provider Family Medicine
DX: Z12.31 Encounter for screening mammogram for malignant neoplasm of breast (principal)
CPT/HCPCS: 77063; 77067

== ENCOUNTER 2023-10-13 11:40 | Outpatient (CLI) | payer OTHER, SELFPAY ==
--- NOTE | 2023-10-13 11:53 | CT_ITS ---
WS: [id number] CT ABDOMEN PELVIS TECHNIQUE: Contrast-enhanced CT of the abdomen and pelvis with coronal and sagittal reformatted image s. CLINICAL INFORMATION: RIGHT LOWER QUADRANT PAIN COMPARISON: None. DLP: 344.[address] scans at [facility] use at least one of these dose optimization techniques: automated e xposure control; mA and/or kV adjustment per patient size (includes targeted exams where dose is matc hed to clinical indication); or iterative reconstruction. FINDINGS: Prior appendectomy and hysterectomy. Lung bases are well aerated. Diffuse fatty infiltration of the l iver. Mild hepatomegaly. Normal gallbladder. Normal portal vein and splenic vein. Normal spleen. Tiny esophageal canal hernia. Normal caliber abdominal aorta. Aortic calcification. Celiac and SMA are patent. Adrenal glands are n ormal. Normal renal parenchymal enhancement. No hydronephrosis. Small subcentimeter bilateral renal c ysts. A few sigmoid diverticuli. No evidence of acute diverticulitis. Sigmoid diverticulosis. No evidence o f acute diverticulitis. Dense fecal retention in the hepatic flexure. Cecal constipation. Distended l ow-lying cecum in the RIGHT lower quadrant. Small amount of fluid with air-fluid level in the termina l ileum. No evidence of high-grade small large bowel obstruction. Enhancing normal caliber fluid-filled small bowel loops in the pelvis can be seen with small bowel en teritis. No hematoma or significant fluid collection in the hysterectomy bed. CT/CT abdomen pelvis w con* [id number] IMPRESSION: 1. Recent postoperative hysterectomy. No fluid collection or hematoma in the p tin. 2. Prior appendectomy. 3. Distended cecum with dense constipation. Tortuous hepatic flexure with cons tipation. Moderate constipation transverse colon. 4. Enhancing normal caliber fluid-filled small bowel loops in the pelvis can b e seen with small bowel enteritis or may be reactive from recent hysterectomy. 5. No other acute findings.
[2023-10-13] MEDS: iohexol 350 mg/mL 500 mL Btl (per mL) IV (12:05)
== END 2023-10-13 11:46 | disposition home or self-care (01) ==
PROVIDERS: PCP Family Medicine; Visit Provider Family Medicine
DX: K59.00 Constipation, unspecified (principal); K57.30 Diverticulosis of large intestine without perforation or abscess without bleeding; Z90.49 Acquired absence of other specified parts of digestive tract; Z90.710 Acquired absence of both cervix and uterus; K76.0 Fatty (change of) liver, not elsewhere classified; R16.0 Hepatomegaly, not elsewhere classified
CPT/HCPCS: 74177; Q9967

== ENCOUNTER 2023-12-17 15:01 | Outpatient (CLI) | payer OTHER, SELFPAY ==
[2023-12-17 15:24] LABS: Basophils % 0.6 %; Eosinophils # 0.1 10^3/uL (0.0-0.8); Eosinophils % 1.9 %; Hematocrit 44.9 % (36-47); Lymphocytes # 1.8 10^3/uL (0.8-4.8); Lymphocytes % 28.3 %; Mean Corpuscular HGB Conc 33.4 g/dL (30-55); Mean Corpuscular Hemoglobin 32.1 pg (27-33); Mean Corpuscular Volume 96.1 fl (85-98); Mean Platelet Volume 10.1 fL (7.4-10.4); Monocytes # 0.6 10^3/uL (0.2-0.9); Monocytes % 9.4 %; Neutrophils # 3.69 10^3/uL (1.8-7.7); Neutrophils % 59.6 %; Nucleated Red Blood Cells % 0 %; Platelet Count 354 10^3/cmm (157-399); Red Blood Count 4.67 10^6/uL (3.85-5.65); Red Cell Distribution Width 13.2 % (12.1-15.1); White Blood Count 6.19 10^3/uL (3.29-11.43)
[2023-12-17 15:26] LABS: Bilirubin Urine Negative (Negative); Blood Urine Negative (Negative); Glucose Urine UA Negative (Normal); Ketones Urine Negative (Negative); Leukocyte Esterase Urine Negative (Negative); Nitrate Urine Negative (Negative); Protein Urine Negative (Negative); Specific Gravity, Urine 1.015 (1.005-1.030); Urine Appearance Clear (CLEAR); Urine Color Yellow (Yellow); pH Urine 5.5 (5-7)
[2023-12-17 15:31] LABS: Add Urine Microscopic? YES; Bacteria Urine None Seen /hpf; Hyaline Casts Urine 9.51 /lpf; RBC Urine 0-2 /hpf (0-2); Squamous Epithelial Cell Urine 0-5 /hpf (0-5); WBC Urine 0-5 /hpf (0-5)
[2023-12-17 15:41] LABS: Albumin Level 4.5 g/dL (3.5-5.2); Anion Gap 17.3 (5-19); Blood Urea Nitrogen 22 mg/dL (8-23); Calcium 9.5 mg/dL (8.5-10.5); Carbon Dioxide 24 mmol/L (22-29); Chloride 96 mmol/L (98-107); Glomerular Filtration Rate 56.2 mL/min (90-130); Glucose 145 mg/dL (65-115); Phosphorus 4.5 mg/dL (2.5-4.5); Potassium 4.3 mmol/L (3.5-5.1); Sodium 133 mmol/L (136-145)
[2023-12-17 16:24] LABS: Add Urine Culture? No; UA Slide Review UA Slide Review Perf
== END 2023-12-17 15:02 | disposition home or self-care (01) ==
LOC: LAB 15:02
PROVIDERS: PCP Family Medicine; Visit Provider Internal Medicine Nephrology
DX: N02.8 Recurrent and persistent hematuria with other morphologic changes (principal)
CPT/HCPCS: 80069; 81001; 85025

== ENCOUNTER 2024-03-17 12:45 | Outpatient (CLI) | payer OTHER, SELFPAY ==
--- NOTE | 2024-03-17 12:54 | USCV_ITS ---
Romero Dar Age: 64 Gender: F : 1960 Exam Date: 03/17/2024 13:08 Ordering Phys: Chapo Velasquez MD Technologist: [place] [facility] [place]: BP: 122 / 74 HR: 63 Rhythm: Sinus Technical Quality: Technically difficult study MEASUREMENTS (Male / Female) Normal Values 2D ECHO LVOT Diameter 2.1 cm LV Ejection Fraction MOD 4C 70.1 % LV Ejection Fraction MOD 2C 65.0 % LV Ejection Fraction 2C AL 65.5 % LA Diameter 4.0 cm RA Systolic Volume 4C AL 20.0 ml RA Systolic Volume 4C MOD 20.4 ml LA Sys Volume AL 34.0 cm cubed LA Sys Volume Index AL 18.5 cm cubed/m squared Aorta at Sinotubular Diameter 1.9 cm IVC Diameter 1.7 cm DOPPLER AV Peak Velocity 124.0 cm/s LVOT Peak Velocity 121.0 cm/s AV Area Cont Eq vti 3.0 cm squared AV Area Cont Eq pk 3.3 cm squared MV Peak Velocity 85.0 cm/s MV Area PHT 4.1 cm squared Mitral E to A Ratio 1.0 TV Peak E Velocity 56.0 cm/s PV Peak Velocity 83.5 cm/s FINDINGS Left Ventricle LV systolic function is normal with EF of 60-65%. No regional wall motion abnormalities are seen. Right Ventricle Normal in size and function Right Atrium Normal in size Left Atrium Normal in size Mitral Valve Structurally normal mitral valve. Mild mitral regurgitation. Aortic Valve Structurally normal aortic valve. No significant stenosis or regurgitation. Tricuspid Valve Mild tricuspid regurgitation. Insufficient TR jet to evaluate RVSP. Pulmonic Valve Not well visualized Pericardium Normal Aorta Normal in size IVC Appears to be normal CONCLUSIONS LV systolic function is normal with EF of 60-65% Mild mitral regurgitation Mild tricuspid regurgitation Compared to prior echocardiogram from 2020, no significant changes are seen. Rei Lund MD (Electronically Signed) Final Date: 18 March 2024 10:41 S
== END 2024-03-17 12:52 | disposition home or self-care (01) ==
PROVIDERS: PCP Family Medicine; Visit Provider Family Medicine
DX: R06.01 Orthopnea (principal)
CPT/HCPCS: 93306

== ENCOUNTER 2024-05-10 14:27 | Outpatient (CLI) | payer OTHER, SELFPAY ==
--- NOTE | 2024-05-10 | MM_ITS ---
WS: [id number] BILATERAL 3D TOMOSYNTHESIS DIGITAL SCREENING MAMMOGRAM WITH CAD CLINICAL INFORMATION: ANNUAL SCREENING HISTORY: Screening mammogram. No current complaints. COMPARISON: 2022 TECHNIQUE: Bilateral CC and MLO. FINDINGS: Bilateral breast implants appear stable. Bilateral silicone granulomas in both axilla The breast are composed of extremely dense nodular tissue, which can limit the detection of small underlying mass lesions. No suspicious focal mass, asymmetry, calcifications, or architectural distortion. No evidence of malignancy. Incidental punctate and lucent centered calcifications. MM/MM [facility] tomosynthesis [id number] IMPRESSION: DENSITY: The breasts are extremely dense, which lowers the sensitivity of mammo graphy. BI-RADS: 2 - Benign FOLLOW UP: 1 Year Follow-up Recommend return to annual screening mammography.
== END 2024-05-10 14:28 | disposition home or self-care (01) ==
PROVIDERS: PCP Family Medicine; Visit Provider Family Medicine
DX: Z12.31 Encounter for screening mammogram for malignant neoplasm of breast (principal); Z98.82 Breast implant status; L92.8 Other granulomatous disorders of the skin and subcutaneous tissue; R92.343 Mammographic extreme density, bilateral breasts; R92.1 Mammographic calcification found on diagnostic imaging of breast
CPT/HCPCS: 77063; 77067